=== PATIENT | male | born 1935 | race African-American/Black ===

== ENCOUNTER 2018-03-06 10:24 | Inpatient (IN) | payer MEDICARE, MEDICAID ==
--- NOTE | 2018-03-06 11:13 | ED Physician Chart ---
ED Chief Complaint/HPI - Patient Information Date Seen:: 03/06/18 Time Seen:: 11:07 Chief Complaint:: AGITATION, INCREASED ISOLATION, VERBALIZED DEPRESSION History of Present Illness:: THE PATIENT HAS VERBALIZED THAT HE IS FEELING DEPRESSED BUT HE DENIES SAYING THAT HE WAS DEPRESSED AND HAS NO RECOLLECTION OF IT. HE DENIES DEPRESSION AT THIS STAGE. PATIENT IS ALSO BEING TREATED FOR UTI WITH IV LEVAQUIN. HE HAS A WALDEN CATHETER AND DENIES ANY BURNING WITH URINATION. NO URINARY FREQUENCY. PATIENT DENIES HAVING ANY PAIN WHATSOEVER AT THIS TIME. HE DOES HOWEVER, TAKE PAIN PILLS FREQUENTLY SINCE HE HAD PROSTATE SURGERY 2-3 YEARS AGO. Allergies:: Allergies Allergy/AdvReac Type Severity Reaction Status Date / Time No Known Allergies Allergy Verified 03/06/18 10:47 Vitals:: Vital Signs - 8 hr 03/06/18 10:47 Temp 97.5 F HR 93 RR 18 BP 145/72 O2 Sat % 95 Historian:: Patient, EMS Review:: Nurse's Note Reviewed, EMS run form Reviewed, Transfer documents Reviewed, No other information ED Review of Systems - Review of Systems General/Constitutional: No fever, No chills, Weakness (THE PATIENT HAD A STROKE APPROXIMATELY 5 YEARS AGO THAT HIS LEFT HIM WEAK ON HIS RIGHT SIDE.), No diaphoresis Skin: No skin lesions, No rash, No bruising Head: No headache, No light-headedness (the patient is blind in his right eye. He's had cataract surgery on that eye also.) Neck: No neck pain, No swelling, No thyromegaly, Stiffness, No mass noted Cardio Vascular: No chest pain, No palpitations, No orthopnea, No edema, other ( IRREGULAR RHYTHM DUE TO A. FIB.) Pulmonary: No SOB, No cough, No sputum, Other (no hemoptysis.) GI: No nausea, No vomiting, No diarrhea, No melena, No hematochezia, Constipation, No hematemesis G/U: No dysuria, No frequency, No hematuria, Other (Walden cath in place.) Musculoskeletal: No bone or joint pain, No back pain, No muscle pain Endocrine: No polyuria, No polydipsia Psychiatric: No depression, No suicidal ideation, No auditory hallucination Hematopoietic: No bruising, No lymphadenopathy Allergic/Immuno: No urticaria, No angioedema Neurological: No syncope, No headache, No seizure, No dizziness ED Past Medical History - Past Medical History Past Medical History: HTN, CAD, Dyslipidemia, Other (no history of diabetes or seizures. Patient had a CVA 4-5 years ago. No pacemaker.) Family History: Heart disease, Other (mild dementia.) Social History: Non Smoker (infrequent alcohol use his last job was as a) Employment:: Occasional use of alcohol. Has never used illicit drugs. twice. No illicit drug use Family Medical History - Family Member Mother History Unknown: Yes ED Physical Exam - Physical Examination General/Constitutional: Awake, Well-developed, well-nourished, Alert, No distress, Non-toxic appearing Other Gen/Cons comments:: Patient has been nonambulatory for a period of approximately 5 years. 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 Skin: Nl inspection, No rash, No skin lesions, No ecchymosis, Well hydrated, No lymphadenopathy Other Skin comments:: Patient has old decubiti that have healed over in the buttocks region.. ENMT: External ears, nose nl, Nasal exam nl, Oropharynx nl Other ENMT comments:: Patient is missing multiple teeth and wears dentures. Neck: No stridor Other Neck comments:: Range of motion is limited in the neck due to the patient's muscle tone. Marked muscle tone with AP flexion. No marked nuchal rigidity ED Labs/Radiology/EKG Results - Lab Results Results: Single view AP chest x-ray.: Patient has cardiomegaly with no associated CHF. No areas of pulmonary consolidation or infiltrate. Impression: No acute cardiopulmonary findings. The EKG shows atrial fibrillation with a ventricular rate of 97. Raphine is normal. Patient has a prolonged QRS interval and right bundle branch block. Impression: Abnormal EKG. No ST segment elevation. Laboratory Results - last 24 hr 03/06/18 11:15 WBC 6.8 RBC 4.89 Hgb 12.6 Hct 38.3 L MCV 78.4 L MCH 25.9 L MCHC Differential 33.0 RDW 12.8 Plt Count 264 MPV 7.0 Neutrophils % 60.1 Lymphocytes % 23.3 Monocytes % 10.1 H Eosinophils % 5.8 H Basophils % 0.7 Patient's CBC is unremarkable and that there is no leukocytopenia, leukocytosis or anemia. Metabolic studies are still pending. ED Assessment - Assessment General Assessment: : CASE SUMMARY: THIS PATIENT WAS REFERRED TO [facility] FOR PSYCHIATRIC EVALUATION. HE IS 82 YEARS OLD AND QUALIFIES FOR THE PSYCHIATRIC GERIATRIC FACILITY. HE CURRENTLY DENIES THAT HE IS DEPRESSED BUT APPARENTLY HAD COMPLAINED OF THIS RECENTLY. HE IS CURRENTLY BEING TREATED WITH LEVAQUIN And FOR HER URINARY TRACT INFECTION. PATIENT HAS CHRONIC ATRIAL FIBRILLATION BUT HIS CARDIAC STATUS IS STABLE. THE CBC WAS UNREMARKABLE AND THERE WAS NO EVIDENCE FOR INFECTION. METABOLIC STUDIES. THE PATIENT HAS MILD HYPONATREMIA WHICH IS OF NO CLINICAL SIGNIFICANCE. THE REST OF HIS ELECTROLYTES ARE WITHIN NORMAL PARAMETERS. HE HAS MILD IMPAIRMENT OF RENAL FUNCTION WITH A BUN OF 24 AND A CREATININE OF 1.5 LIVER FUNCTION TESTS WERE WITHIN NORMAL PARAMETERS. ED Septic Shock - . Is Septic Shock (SBP<90, OR Lactate>4 mmol\L) present?: No - <6hrs of presentation: Vital Signs: Vital Signs - 8 hr 03/06/18 10:47 Temp 97.5 F HR 93 RR 18 BP 145/72 O2 Sat % 95 ED Reassessment (Disposition) - Reassessment Reassessment Condition:: Unchanged - Diagnosis Diagnosis:: DIAGNOSES: 1. DEPRESSION WITHOUT SUICIDAL IDEATION 2. ATRIAL FIBRILLATION WITH A CONTROLLED VENTRICULAR RATE 3. STATUS POST CVA WITH RESIDUAL SPASTICITY AND WEAKNESS ESPECIALLY INVOLVING THE RIGHT SIDE. 4. HYPERTENSION 5. HYPERLIPIDEMIA ED Discharge Plan - Patient Disposition Instructions: Psychosis
[2018-03-06 11:29] LABS: % BASOPHILS 0.7 % (0.0-2.0); % EOSINOPHILS 5.8 % (0.0-5.0); % LYMPHOCYTES 23.3 % (20.0-50.0); % MONOCYTES 10.1 % (2.0-10.0); % NEUTROPHILS 60.1 % (40.0-80.0); EOSINOPHILE ABSOLUTE 0.4 Th/cmm (0.1-0.4); HEMATOCRIT 38.3 % (41.0-60); HEMOGLOBIN 12.6 gm/dL (12-16); LYMPHOCYTE ABSOLUTE 1.6 Th/cmm (1.5-3.0); MEAN CELL VOLUME 78.4 fl (80-99); MEAN CORPUSCULAR HEMOGLOBIN 25.9 pg (27.0-31.0); MONOCYTE ABSOLUTE 0.7 Th/cmm (0.3-1.0); NEUTROPHILE ABSOLUTE 4.1 Th/cmm (1.8-8.0); PLATELET COUNT 264 Th/cmm (150-400); RED BLOOD COUNT 4.89 Mil/cmm (3.80-5.80); RED CELL DISTRIBUTION WIDTH 12.8 % (11.5-20.0); WHITE BLOOD COUNT 6.8 Th/cmm (4.8-10.8)
[2018-03-06 11:47] LABS: URINE MICROSCOPIC INDICATED? YES; URINE SOURCE CLEAN C
[2018-03-06 11:50] LABS: URINE BILIRUBIN NEGATIVE (NEGATIVE); URINE BLOOD NEGATIVE (NEGATIVE); URINE GLUCOSE (UA) NEGATIVE (NEGATIVE); URINE KETONE NEGATIVE (NEGATIVE); URINE LEUKOCYTE ESTERASE TRACE (NEGATIVE); URINE NITRATE POSITIVE (NEGATIVE); URINE PROTEIN NEGATIVE (NEGATIVE); URINE UROBILINOGEN 0.2 E.U./dL (0.2 - 1.0)
[2018-03-06 11:55] LABS: URINE CLARITY SLIGHTLY HAZY (CLEAR); URINE COLOR YELLOW
[2018-03-06 11:55] LABS: ALB/GLOB RATIO 1.1 (1.0-1.8); ALBUMIN 3.9 gm/dL (4.2-5.5); ALKALINE PHOSPHATASE 95 U/L (34-104); ANION GAP 10.5 (7.0-16.0); BILIRUBIN,TOTAL 0.4 mg/dL (0.3-1.0); BUN - UREA NITROGEN 24 mg/dL (7-25); CALCIUM SERUM 9.3 mg/dL (8.6-10.3); CARBON DIOXIDE 24.8 mEq/L (21.0-31.0); CHLORIDE 101 mEq/L (98-107); CHOLESTEROL 192 mg/dL (<200); CREATININE - SERUM 1.5 mg/dL (0.7-1.3); GLUCOSE 108 mg/dL (70-105); HDL -HIGH DENSITY LIPOPROTEIN 45 mg/dL (23-92); POTASSIUM SERUM 4.3 mEq/L (3.5-5.1); SGOT 13 U/L (13-39); SGPT/ALT 9 U/L (7-52); SODIUM SERUM 132 mEq/L (136-145); TOTAL PROTEIN,SERUM 7.4 gm/dL (6.0-8.3); TRIGLYCERIDES 64 mg/dL (<150)
[2018-03-06 11:56] LABS: URINE RBC 0-2 /hpf (0-5)
[2018-03-06 11:57] LABS: URINE BACTERIA MODERATE /hpf (NONE SEEN); URINE EPITHELIAL CELLS RARE /lpf (FEW); URINE TRIPLE PHOSPHATE CRYSTAL MANY /hpf (FEW)
[2018-03-06 20:08] VITALS: BP 113/63
[2018-03-06] MEDS ORDERED: Maalox 30 mL Cup PO PRN (22:40)
[2018-03-06] MEDS ORDERED: Magnesium Hydroxide (MOM) 30 mL UDC PO PRN (22:40)
[2018-03-07] MEDS ORDERED: Magnesium Hydroxide (MOM) 30 mL UDC PO PRN (02:45)
[2018-03-07] MEDS: Pantoprazole 40 mg EC Tab PO SCH ×2 (06:46→17:30)
[2018-03-07] MEDS ORDERED: Multivitamin Tab PO SCH (09:00)
--- NOTE | 2018-03-07 09:18 | Diagnostic Imaging Report ---
CHEST X-RAY: AP view INDICATION: Pneumonia COMPARISON: None FINDINGS: Left sided Port-A-Cath is seen with tip in SVC. There is elevation of the left hemidiaphragm. Increased left basal lung markings are noted. Chronic lung changes are noted. No focal consolidation or effusions. Cardiomegaly is noted. Degenerative changes of the spine are noted. IMPRESSION: Elevation of the left hemidiaphragm with increased left basal lung markings suggestive of atelectatic changes. Faint infiltrate is less likely. Cardiomegaly.
[2018-03-07] MEDS: Ferrous Sulfate 325 MG TAB PO SCH ×2 (10:33→17:53)
[2018-03-07] MEDS: Multivitamin w/ Minerals Tab PO SCH (10:33)
[2018-03-07] MEDS: Hydrocodone/APAP 5mg/325mg Tab PO PRN ×2 (10:45→18:00)
--- NOTE | 2018-03-07 15:12 | History & Physical ---
ADMIT DATE: 03/06/2018 PATIENT IDENTIFICATION: An 82-year-old male. REQUESTING PHYSICIAN: Dr. Santiago. PRESENTING COMPLAINTS: "I am depressed." HISTORY OF PRESENT ILLNESS: An 82-year-old -[place] male who was transferred from [facility] to [facility] for evaluation of social isolation and depression. The patient was worked up and subsequently admitted to Geropsych Unit. PAST MEDICAL HISTORY: Remarkable for: 1. Hypertension. 2. CVA. 3. Prostate cancer. 4. Neurogenic bladder requiring chronic indwelling Colmenares catheter. 5. Left eye blindness. 6. DJD. 7. History of hypoglycemia. MEDICATIONS: At the time of transfer, the patient is taking multiple medications, which includes [place], losartan, metoprolol, Dulcolax, vitamin C, and Protonix. ALLERGIES: The patient is not allergic to any medications. SOCIAL HISTORY: The patient resides in a senior living. According to him, the patient used to live in [place] and he is in [place] for last few years. The patient also tells me that he has not walked for last 2 years as well. FAMILY HISTORY: Remarkable for diabetes, hypertension, and coronary artery disease. REVIEW OF SYSTEMS: The patient currently denies any headache, blurred vision, double vision, dysphagia, odynophagia, runny nose, stuffy nose, fever, chills, cough, chest pain, shortness of breath, palpitation, dizziness, nausea, vomiting, diarrhea, dysuria, hematuria, hematochezia, or melena. No history of any seizure or syncopal episode. PHYSICAL EXAMINATION: GENERAL: The patient is alert, awake, oriented, lying in the bed without any acute distress. VITAL SIGNS: Temperature 98.6, pulse 64, respiratory rate 18, and blood pressure 126/80. SKIN: Warm to touch. Adequate skin turgor. No petechia, no purpura. HEENT: Normocephalic, atraumatic, legally blindness on the left eye noted. Decreased vision on the left eye also noted. Tongue was pink and coated. Multiple absent teeth noted. No oral lesion was noted. No sinus tenderness. NECK: Supple, no JVD, no hepatojugular reflex. No lymphadenopathy, thyromegaly, or carotid bruit. HEART: Both heart sounds are regular. No S3, no S4, no murmur. CHEST AND LUNGS: Equal in expansion, no wheezing, no crackles. ABDOMEN: Soft. No guarding, no rigidity. Bowel sounds are present. No palpable mass. EXTREMITIES: Bilateral foot drop noted. Peripheral pulses were +1. Lower extremity, no calf tenderness noted. NEUROLOGIC: Alert, awake, follows command. II through XII cranial nerves are intact. Power in upper extremities are 5-. Lower extremity power is 2/5. Absent reflexes on the knee and ankle noted. AVAILABLE DIAGNOSTIC DATA: Performed in the Emergency Room, chest x-ray: Elevation of the left hemidiaphragm noted. TSH of 2.37. Urinalysis report nitrate being positive. Hemoglobin 12.6 and platelet count of 264. BUN and creatinine is 24 and 1.5, albumin of 3.9. Cholesterols are normal. Sodium 132, potassium 4.3, chloride 101, glucose 108. Glycohemoglobin A1c 6.5. EKG normal sinus rhythm, no ST-T changes representing acute ischemia. CLINICAL IMPRESSION: 1. Acute exacerbation of psychotic disorder. 2. Hypertension. 3. Bilateral lower extremity weakness. 4. Neurogenic bladder. 5. History of prostate cancer. 6. Gastroesophageal reflux disease. 7. History of ischemic strokes. 8. Legally blindness. 9. Hyperlipidemia. 10. History of hypoglycemia. PLAN: 1. Psychotic evaluation and management deferred to psychiatrist. 2. Monitor blood pressure. 3. Antihypertensive medicine. 4. Antiplatelet therapy. 5. Keep indwelling Colmenares catheter. 6. Colmenares catheter management. 7. Proton pump inhibitor. 8. Statin. 9. Fall precautions. 10. General nursing care. 11. We will continue to follow this patient during the stay in the hospital. JOB# [id number]
--- NOTE | 2018-03-07 15:13 | Psychosocial Evaluation ---
DATE OF SERVICE: 03/06/2018 IDENTIFYING DATA: Staff was spoken to. Information obtained by directly interviewing the patient as well as reviewing the admission papers. JUSTIFICATION FOR HOSPITALIZATION: The patient is admitted on a voluntary basis in view of his acute depression. CHIEF COMPLAINT: "I am down." HISTORY OF PRESENT ILLNESS: This is the first psychiatric hospitalization to [facility] for this 82-year-old -[place] male, resident of [facility]. The patient is reported to have been feeling depressed and fatigue for the past 3-4 weeks and he states that he has not able to deal with it and hence requested hospitalization for stabilization. PAST PSYCHIATRIC HISTORY: Details are not known. MEDICAL HISTORY: Physical examination is requested to be done by Dr. Mahajan. SUBSTANCE ABUSE HISTORY: None. PHYSICAL OR SEXUAL ABUSE HISTORY: None. LEGAL PROBLEMS: None at this time. STRENGTH AND ASSETS: The patient is motivated. MENTAL STATUS EXAMINATION: The patient is an 82-year-old moderately obese, cooperative. Eye contact is fair. Mood is noted to be depressed. Affect is constricted. The patient's insight and judgment at this time are noted to be impaired. Impulse control is noted to be poor. The patient is not presenting with any suicidal plans, but patient is feeling frustrated. The patient has been having difficult time to cope with the stress. The patient is fully aware that he is in the hospital. The patient is alert and awake. The patient is motivated for treatment. DIAGNOSTIC IMPRESSION: AXIS I: Major depressive disorder, first episode and severe. AXIS II: None. AXIS III: As per Dr. Mahajan. IMMEDIATE TREATMENT PLAN: The patient is going to be observed on inpatient unit, provided with supportive psychotherapy. The patient is going to be started on the low dose of Lexapro. Once stabilized, the patient is going to be discharged to ____ outpatient basis. JOB# [id number]
[2018-03-08] MEDS: Hydrocodone/APAP 5mg/325mg Tab PO PRN ×2 (06:16→12:09)
[2018-03-08] MEDS: Pantoprazole 40 mg EC Tab PO SCH ×2 (06:41→17:36)
[2018-03-08] MEDS: Escitalopram Oxalate 5 mg Tab PO SCH (08:30)
[2018-03-08] MEDS: Multivitamin w/ Minerals Tab PO SCH (08:32)
[2018-03-08] MEDS: Ferrous Sulfate 325 MG TAB PO SCH ×2 (08:32→17:35)
[2018-03-08] MEDS ORDERED: Probiotic Screen MC PRN (10:23)
[2018-03-08] MEDS: Lactobacillus Rhamnosus GG 15 Billion CFU CAP.SPRINK PO SCH (11:30)
--- NOTE | 2018-03-08 22:55 | Progress Notes ---
DATE: IDENTIFICATION: An 82-year-old male. SUBJECTIVE: The patient seen and examined. The patient is lying in the bed. The patient complaining of the leg cramp on left lower extremity. The patient denies any chest pain, shortness of breath, palpitation, dizziness, nausea, vomiting. PHYSICAL EXAMINATION: VITAL SIGNS: See nurse's note. HEENT: Legally blindness in the left eye. Tongue more pink and coated. Multiple absent teeth noted. NECK: Supple, no JVD. HEART: Regular. CHEST AND LUNGS: Equal in expansion, no wheezing, no crackles. ABDOMEN: Soft. No guarding or rigidity. Bowel sounds present. No palpable mass. EXTREMITIES: Lower extremity weakness noted. Indwelling Colmenares catheter noted. CLINICAL IMPRESSION: 1. Hypertension. 2. Prostate cancer history. 3. Neurogenic bladder requiring indwelling Colmenares catheter. 4. Degenerative joint disease. 5. Gastroesophageal reflux disease. 6. Psychotic disorder exacerbation. 7. History of cerebrovascular accident. PLAN: 1. Psychotic evaluation deferred to psychiatrist. 2. Antihypertensive medicine. 3. Low sodium diet. 4. Colmenares catheter care. 5. Pepcid. 6. Antiplatelet therapy. 7. General nursing care. 8. Nutritional support. 9. Fall precautions. 10. We will continue to follow this patient during the stay in the hospital. JOB# [id number]
--- NOTE | 2018-03-09 00:08 | Progress Notes ---
DATE: 03/08/2018 PSYCHIATRIC PROGRESS NOTE SUBJECTIVE: Staff was spoken to. The patient is interviewed. Mood is noted to be irritable. Affect is constricted. Coping skills are noted to be very poor. The patient has been isolative and withdrawn. The patient is stating that he has been here to get some of the tests done and he needs to go back to the facility. The patient has no insight into his illness and has not been fully aware that he is in the hospital. ASSESSMENT: The patient is still depressed. PLAN: To continue the patient with supportive therapy. I encouraged the patient to verbalize the concerns rather than to act out. JOB# [id number]
[2018-03-09] MEDS: Hydrocodone/APAP 5mg/325mg Tab PO PRN ×3 (06:18→20:32)
[2018-03-09] MEDS: Pantoprazole 40 mg EC Tab PO SCH ×2 (06:33→17:15)
--- NOTE | 2018-03-09 07:55 | Consultation ---
DATE OF CONSULTATION: 03/08/2018 REFERRING PHYSICIAN: Dayna Santiago M.D. TYPE OF CONSULTATION: Psychology. HISTORY OF PRESENT ILLNESS: The patient is an 82-year-old -Irish male. The patient is a resident of [facility]. The following is by review of the record and by the patient's self report. The patient is reported to have been feeling depressed and fatigued for approximately 3-4 weeks. The staff at [facility] referred the patient here for treatment and stabilization. Upon interview, the patient presents as friendly and cooperative as well as answering clinical interview questions relevantly and coherently. The patient reports that he is not feeling as depressed as before and stated that he mostly has difficulty managing his pain which precipitates a depressed mood. PAST MEDICAL HISTORY: Please see history and physical by Dr. Mahajan. PAST PSYCHIATRIC HISTORY: Information is unavailable at the time of this clinical interview. SUBSTANCE ABUSE HISTORY: PSYCHOSOCIAL HISTORY: The patient reported not to disclose much of a psychosocial history. The patient states that he has had a good life. The patient did not state a specific occupation. The patient states he is a [employer]. The patient is a high school graduate with some college. The patient intimated that he may be a ; however, this was not verified. The patient wishes to return to his facility. The patient denied any history of physical or sexual abuse or any legal problems. MENTAL STATUS EXAMINATION: The patient appears to be his stated age. The patient's attitude is cooperative. Speech is spontaneous. Eye contact is good. Mood is dysphoric. Affect is mood congruent. Thought process shows to be linear and logical with a normal pattern of association and goal oriented. The patient denied any auditory or visual hallucinations or any delusions. The patient denied any suicidal ideation, plan, or intention. The patient states that he has been frustrated with controlling his pain. Concentration is fair. The patient's behavior on the unit has been compliant and directable. Impulse control is fair or adequate. The patient's memory seems to be intact for immediate, short term and custodial dimensions. Sensorium is alert and oriented x3. The patient did not participate in any interpretation of proverbs. Insight is fair. Judgment is fair. DIAGNOSTIC IMPRESSION: AXIS I: Major depressive disorder, first episode, moderate to severe. AXIS II: Deferred. AXIS III: Please see history and physical by Dr. Mahajan. TREATMENT PLAN: The patient has been seen by Dr. Santiago for psychiatric evaluation and for the management of the patient's psychotropic medications. The patient will be provided with supportive psychotherapy to include cognitive behavioral therapy and coping strategies for phase of life issues. According to the record, the patient was started on a low dose of Lexapro. The patient is goal oriented and motivated. We will continue supportive therapy throughout the patient's hospital stay. Thank you, Dr. Santiago, for this consult and the opportunity to participate with you in this patient's care. JOB# [id number] KYLEE
[2018-03-09] MEDS: Multivitamin w/ Minerals Tab PO SCH (08:44)
[2018-03-09] MEDS: Escitalopram Oxalate 5 mg Tab PO SCH (08:44)
[2018-03-09] MEDS: Lactobacillus Rhamnosus GG 15 Billion CFU CAP.SPRINK PO SCH (08:45)
[2018-03-09] MEDS: Ferrous Sulfate 325 MG TAB PO SCH ×2 (08:45→17:16)
--- NOTE | 2018-03-09 22:44 | Progress Notes ---
DATE: 03/09/2018 SUBJECTIVE: Staff was spoken to. The patient is interviewed. Mood is noted to be irritable. Affect is constricted. Coping skills are noted to be still poor. The patient is getting easily irritable and angry. The patient is isolated and the patient is stating that there is no reason for him to be on the medications and patient has been having difficult time to comply with the treatment. ASSESSMENT: The patient is still depressed. PLAN: To continue the patient with the supportive therapy and followup. [facility]# [id number]
--- NOTE | 2018-03-10 06:03 | Progress Notes ---
DATE: 03/09/2018 SUBJECTIVE: The patient seen and examined. The patient is lying in the bed. The patient denies any chest pain, shortness of breath, palpitation, dizziness, nausea, vomiting, headache. PHYSICAL EXAMINATION: VITAL SIGNS: Reviewed. HEENT: Legally blindness on the left eye. Tongue was pink and coated. No facial asymmetry. NECK: Supple. No JVD. No lymphadenopathy, thyromegaly. HEART: Regular. CHEST: Lung equal in expansion with no expiratory wheezing. ABDOMEN: Soft. No guarding. No rigidity. Bowel sounds are present. No palpable mass. EXTREMITIES: No edema. Peripheral pulses are +1. Bilateral foot drop noted. CLINICAL IMPRESSIONS: 1. Hypertension. 2. Prostate cancer by history. 3. Degenerative joint disease. 4. Gastroesophageal reflux disease. 5. Psychotic disorder exacerbation. 6. History of cerebrovascular accident. 7. High risk for fall. 8. Legally blindness from the left eye. 9. Neurogenic bladder. PLAN: 1. Psych medications. 2. Psych followup. 3. Antihypertensive medicine. 4. Aspirin. 5. Indwelling Colmenares catheter care. 6. Proton pump inhibitor. 7. Statin. 8. General nursing care. 9. Care plan reviewed and discussed with staff. JOB# [id number]
[2018-03-10] MEDS: Hydrocodone/APAP 5mg/325mg Tab PO PRN ×2 (06:09→15:05)
[2018-03-10] MEDS: Pantoprazole 40 mg EC Tab PO SCH ×2 (06:33→16:24)
[2018-03-10] MEDS: Multivitamin w/ Minerals Tab PO SCH (10:00)
[2018-03-10] MEDS: Escitalopram Oxalate 5 mg Tab PO SCH (10:00)
[2018-03-10] MEDS: Lactobacillus Rhamnosus GG 15 Billion CFU CAP.SPRINK PO SCH (10:00)
[2018-03-10] MEDS: Ferrous Sulfate 325 MG TAB PO SCH (10:00)
--- NOTE | 2018-03-10 22:06 | Progress Notes ---
DATE: 03/10/2018 SUBJECTIVE: Staff was spoken to. The patient is interviewed. Mood is noted to be irritable. Affect is constricted. Coping skills are noted to be still poor. Sleep and appetite also noted to very limited. The patient has been isolative and withdrawn, has been showing very little interest in participating in any of the groups. ASSESSMENT: The patient is still depressed. PLAN: To continue the patient with a low dose of Lexapro and follow. JOB# [id number]
[2018-03-11] MEDS: Hydrocodone/APAP 5mg/325mg Tab PO PRN ×3 (03:11→20:48)
--- NOTE | 2018-03-11 06:31 | Progress Notes ---
DATE: 03/10/2018 SUBJECTIVE: The patient seen and examined. The patient is lying in the bed. Discussed with nursing staff. There is no new event noted. OBJECTIVE: VITAL SIGNS: Temperature 98.1, pulse is 76, respiratory rate is 18, blood pressure 130/80. HEENT: No facial asymmetry. NECK: Supple, no JVD. HEART: Regular. CHEST: Lung equal in expansion. LUNGS: No wheezing, no crackles. ABDOMEN: Soft, no guarding, no rigidity. Bowel sounds are present. No palpable mass. EXTREMITIES: Bilateral foot drop noted with muscle wasting on the lower extremity. No calf tenderness noted. Bilateral foot drop noted. Neurogenic bladder noted. NEUROLOGY EXAM: Remarkable for lower extremity weakness. CLINICAL IMPRESSION: 1. Urinary tract infection caused by Proteus mirabilis, sensitivity to penicillin, currently on amoxicillin. 2. Neurogenic bladder. 3. Psychotic disorder exacerbation. 4. History of cerebrovascular accident. 5. Lower extremity weakness. 6. High risk for fall. 7. Neurogenic bladder. PLAN: The patient is to be continued on p.o. amoxicillin along with the monitor blood pressure. Continue antihypertensive medications along with symptoms management and Protonix for GERD. Discontinue iron therapy considering patient has no longer anemia. Fall precautions will be continued. General nursing care will be continued and nutritional support will be provided. Care plan has been reviewed and discussed with staff. JOB# [id number]
[2018-03-11] MEDS: Pantoprazole 40 mg EC Tab PO SCH ×2 (06:43→17:25)
[2018-03-11] MEDS: Multivitamin w/ Minerals Tab PO SCH (08:32)
[2018-03-11] MEDS: Lactobacillus Rhamnosus GG 15 Billion CFU CAP.SPRINK PO SCH (08:32)
[2018-03-11] MEDS: Escitalopram Oxalate 5 mg Tab PO SCH (08:32)
--- NOTE | 2018-03-12 03:14 | Progress Notes ---
DATE: 03/11/2018 PSYCHIATRIC PROGRESS NOTE SUBJECTIVE: Staff was spoken to. The patient is interviewed. Mood is noted to be irritable. Affect is constricted. Insight and judgment at this time are noted to be still impaired. Impulse control is noted to be limited. The patient has been getting angry and frustrated that he needs to be out of here. No side effects to the medications are noted. The patient is only on 5 mg of the Lexapro and has been able to tolerate the medications. No side effects to the medications are noted. ASSESSMENT: The patient is still depressed. PLAN: To increase the dose on the Lexapro to 10 mg and follow the patient with the supportive therapy. JOB# [id number]
[2018-03-12] MEDS: Pantoprazole 40 mg EC Tab PO SCH ×2 (06:34→16:30)
[2018-03-12] MEDS: Lactobacillus Rhamnosus GG 15 Billion CFU CAP.SPRINK PO SCH (08:28)
[2018-03-12] MEDS: Multivitamin w/ Minerals Tab PO SCH (08:29)
[2018-03-12] MEDS ORDERED: Escitalopram Oxalate 5 mg Tab PO SCH (09:00)
[2018-03-12] MEDS: Hydrocodone/APAP 5mg/325mg Tab PO PRN ×2 (13:41→21:28)
--- NOTE | 2018-03-13 02:10 | Progress Notes ---
DATE: 03/12/2018 PSYCHIATRIC PROGRESS NOTE SUBJECTIVE: Staff was spoken to. The patient is interviewed. Mood is noted to be anxious. Affect is appropriate. Coping skills are noted to be improving. Sleep and appetite are noted to be fair. No side effects to the medications are noted. The patient has been currently on the Lexapro and has been able to tolerate the medications. No side effects to the medications are noted. ASSESSMENT: The patient's mood is stabilizing. PLAN: To continue the patient with supportive therapy. I encouraged the patient to place the concerns rather than to act out. JOB# [id number]
--- NOTE | 2018-03-13 03:26 | Progress Notes ---
DATE: 03/12/2018 IDENTIFICATION: An 82-year-old male. SUBJECTIVE: The patient seen and examined. The patient is lying in the bed. Discussed with nursing staff, no new event. The patient remained hemodynamically stable. OBJECTIVE: VITAL SIGNS: Temperature 97, pulse is 80, respiratory rate is 18, blood pressure 143/72. HEENT: No facial asymmetry. NECK: Supple, no JVD. HEART: Regular. CHEST: Lung equal in expansion. LUNGS: No wheezing, no crackles. ABDOMEN: Soft. No guarding, no rigidity. Bowel sounds are present. No palpable mass. EXTREMITIES: Bilateral lower extremity weakness noted, but it was a +1 bilateral foot drop noted. No calf tenderness. Indwelling Colmenares catheter also noted. CLINICAL IMPRESSION: 1. Proteus mirabilis urinary tract infection. 2. Neurogenic bladder. 3. Lower extremity weakness. 4. Psychiatric disorder exacerbation. 5. High risk for fall. PLAN: 1. Antibiotic. 2. Bladder, Colmenares catheter care. 3. Nutritional support. 4. Fall precautions. 5. Psychotic evaluation and management deferred to psychiatrist. 6. General nursing care. 7. Continue other medicine as prescribed. 8. Symptoms management. 9. We will continue to follow this patient during the stay in the hospital. JOB# [id number]
[2018-03-13] MEDS: Pantoprazole 40 mg EC Tab PO SCH (06:50)
[2018-03-13] MEDS: Multivitamin w/ Minerals Tab PO SCH (08:56)
[2018-03-13] MEDS: Lactobacillus Rhamnosus GG 15 Billion CFU CAP.SPRINK PO SCH (08:58)
[2018-03-13] MEDS: Hydrocodone/APAP 5mg/325mg Tab PO PRN (08:58)
--- NOTE | 2018-03-13 11:51 | Internal Medicine Prog Note ---
Internal Medicine Subjective - Subjective Service Date: 03/13/18 Patient seen and examined:: with staff, chart reviewed Patient is:: awake, verbal, interactive, in bed Internal Medicine Objective - Results Result Diagrams: 03/06/18 11:15 03/06/18 11:15 Recent Labs: Laboratory Last Values WBC 6.8 Th/cmm (4.8-10.8) 03/06/18 11:15 RBC 4.89 Mil/cmm (3.80-5.80) 03/06/18 11:15 Hgb 12.6 gm/dL (12-16) 03/06/18 11:15 Hct 38.3 % (41.0-60) L 03/06/18 11:15 MCV 78.4 fl (80-99) L 03/06/18 11:15 MCH 25.9 pg (27.0-31.0) L 03/06/18 11:15 MCHC Differential 33.0 pg (28.0-36.0) 03/06/18 11:15 RDW 12.8 % (11.5-20.0) 03/06/18 11:15 Plt Count 264 Th/cmm (150-400) 03/06/18 11:15 MPV 7.0 fl 03/06/18 11:15 Neutrophils % 60.1 % (40.0-80.0) 03/06/18 11:15 Lymphocytes % 23.3 % (20.0-50.0) 03/06/18 11:15 Monocytes % 10.1 % (2.0-10.0) H 03/06/18 11:15 Eosinophils % 5.8 % (0.0-5.0) H 03/06/18 11:15 Basophils % 0.7 % (0.0-2.0) 03/06/18 11:15 Sodium 132 mEq/L (136-145) L 03/06/18 11:15 Potassium 4.3 mEq/L (3.5-5.1) 03/06/18 11:15 Chloride 101 mEq/L (98-107) 03/06/18 11:15 Carbon Dioxide 24.8 mEq/L (21.0-31.0) 03/06/18 11:15 Anion Gap 10.5 (7.0-16.0) 03/06/18 11:15 BUN 24 mg/dL (7-25) 03/06/18 11:15 Creatinine 1.5 mg/dL (0.7-1.3) H 03/06/18 11:15 Est GFR ( Amer) TNP 03/06/18 11:15 Est GFR (Non-Af Amer) TNP 03/06/18 11:15 BUN/Creatinine Ratio 16.0 03/06/18 11:15 Glucose 108 mg/dL (70-105) H 03/06/18 11:15 Hemoglobin A1c % 6.0 % (4.0-6.0) 03/06/18 11:15 Calcium 9.3 mg/dL (8.6-10.3) 03/06/18 11:15 Total Bilirubin 0.4 mg/dL (0.3-1.0) 03/06/18 11:15 AST 13 U/L (13-39) 03/06/18 11:15 ALT 9 U/L (7-52) 03/06/18 11:15 Alkaline Phosphatase 95 U/L (34-104) 03/06/18 11:15 Total Protein 7.4 gm/dL (6.0-8.3) 03/06/18 11:15 Albumin 3.9 gm/dL (4.2-5.5) L 03/06/18 11:15 Globulin 3.5 gm/dL 03/06/18 11:15 Albumin/Globulin Ratio 1.1 (1.0-1.8) 03/06/18 11:15 Triglycerides 64 mg/dL (<150) 03/06/18 11:15 Cholesterol 192 mg/dL (<200) 03/06/18 11:15 LDL Cholesterol Direct 130 mg/dL (75-193) 03/06/18 11:15 HDL Cholesterol 45 mg/dL (23-92) 03/06/18 11:15 TSH 2.37 uIU/ml (0.34-5.60) 03/06/18 11:15 Urine Source CLEAN C 03/06/18 11:40 Urine Color YELLOW 03/06/18 11:40 Urine Clarity SLIGHTLY HAZY (CLEAR) 03/06/18 11:40 Urine pH 8.0 (4.6 - 8.0) 03/06/18 11:40 Ur Specific [place] 1.010 (1.005-1.030) 03/06/18 11:40 Urine Protein NEGATIVE mg/dL (NEGATIVE) 03/06/18 11:40 Urine Glucose (UA) NEGATIVE mg/dL (NEGATIVE) 03/06/18 11:40 Urine Ketones NEGATIVE mg/dL (NEGATIVE) 03/06/18 11:40 Urine Blood NEGATIVE (NEGATIVE) 03/06/18 11:40 Urine Nitrate POSITIVE (NEGATIVE) H 03/06/18 11:40 Urine Bilirubin NEGATIVE (NEGATIVE) 03/06/18 11:40 Urine Urobilinogen 0.2 E.U./dL (0.2 - 1.0) 03/06/18 11:40 Ur Leukocyte Esterase TRACE (NEGATIVE) H 03/06/18 11:40 Urine RBC 0-2 /hpf (0-5) H 03/06/18 11:40 Urine WBC 6-10 /hpf (0-5) 03/06/18 11:40 Ur Epithelial Cells RARE /lpf (FEW) 03/06/18 11:40 Triple Phos Crystals MANY /hpf (FEW) 03/06/18 11:40 Urine Bacteria MODERATE /hpf (NONE SEEN) H 03/06/18 11:40 RPR NONREACTIVE (NONREACTIVE) 03/06/18 11:15 - Physical Exam Vitals and I&O: Vital Signs Temp 98.1 F 03/13/18 07:09 Pulse 87 03/13/18 08:57 Resp 20 03/13/18 07:09 BP 121/74 03/13/18 08:57 Pulse Ox 100 03/13/18 07:09 Intake & Output 03/12/18 03/13/18 03/13/18 18:59 06:59 18:59 Intake Total 900 420 340 Output Total 800 400 600 Balance 100 20 -260 Intake: Oral 900 420 340 Output: Urine 800 400 600 Active Medications: Current Medications Acetaminophen (Tylenol) 650 mg PO Q4HR PRN PRN Reason: Mild Pain / Temp above 100 Stop: 05/05/18 22:39 Acetaminophen/Hydrocodone Bitart ([place] 5mg/325mg) 1 tab PO Q6H PRN PRN Reason: Pain (Moderate) Stop: 05/06/18 02:36 Last Admin: 03/13/18 08:58 Dose: 1 tab Al Hydrox/Mg Hydrox/Simethicone (Maalox) 30 ml PO Q4HR PRN PRN Reason: GI DISTRESS Stop: 05/05/18 22:39 Amoxicillin (Amoxil) 500 mg PO TID [facility] Stop: 05/07/18 20:59 Last Admin: 03/13/18 08:56 Dose: 500 mg Ascorbic Acid (Vitamin C) 500 mg PO DAILY [facility] Stop: 05/06/18 08:59 Last Admin: 03/13/18 08:57 Dose: 500 mg Bisacodyl (Dulcolax 10 Mg Supp) 10 mg RC DAILY PRN PRN Reason: Constipation Stop: 05/06/18 02:36 Escitalopram Oxalate (Lexapro) 10 mg PO DAILY [facility] Stop: 05/12/18 08:59 Last Admin: 03/13/18 08:58 Dose: 10 mg Lactobacillus Rhamnosus (Culturelle 15b) 1 each PO DAILY [facility] Stop: 05/07/18 10:59 Last Admin: 03/13/18 08:58 Dose: 1 each Lorazepam (Ativan) 0.5 mg PO Q4HR PRN; Protocol PRN Reason: Anxiety/agitation Stop: 04/05/18 22:39 Losartan Potassium (Cozaar) 50 mg PO BID [facility] Stop: 05/06/18 08:59 Last Admin: 03/13/18 08:56 Dose: 50 mg Magnesium Hydroxide (Milk Of Magnesia) 30 ml PO DAILY PRN PRN Reason: Bowel Maintenance Stop: 05/06/18 02:44 Metoprolol Tartrate (Lopressor) 25 mg PO BID [facility] Stop: 05/06/18 08:59 Last Admin: 03/13/18 08:57 Dose: 25 mg Miscellaneous (Probiotic Screen) 1 ea MC PRN PRN PRN Reason: PROTOCOL Stop: 05/07/18 10:22 Pantoprazole Sodium (Protonix) 40 mg PO BIDAC [facility] Stop: 05/06/18 07:29 Last Admin: 03/13/18 06:50 Dose: 40 mg Zolpidem Tartrate (Ambien) 5 mg PO HS PRN PRN Reason: Insomnia Stop: 05/05/18 22:39 Last Admin: 03/12/18 01:28 Dose: 5 mg General: alert, NAD HEENT: NC/AT, PERRLA, EOMI, throat clear, poor dentition Neck: Supple, No JVD, No thyromegaly Lungs: CTAB Cardiovascular: RRR, Normal S1, Normal S2 Abdomen: soft, non-tender, non-distended Extremities: contracture, deformity, atrophy Neurological: other (LE weakness+) Internal Medicine Assmt/Plan - Assessment Assessment: Psych disorder. LE weakness. Neurogenic bladdder. Proteus mirabilis UTI. DJD Fall risk. Hypertension. GERD. - Plan Plan: PO antibiotics. Colmenares cath care. Psych meds. Psych Follow up. General nursing care. Symptoms control. Medication management. Fall precautions. Continue current care. Discussed with staff. Nutritional Asmnt/Malnutr-PDOC - Dietary Evaluation Malnutrition Findings (Please click <Entered> for more info): Nutritional Asmnt/Malnutrition Start: 03/09/18 14: 17 Text: Status: Complete Freq: Protocol: Document 03/09/18 14:17 RODRI (Rec: 03/09/18 14:22 YOBANI [id number]) Nutritional Asmnt/Malnutrition Patient General Information Nutritional Screening High Risk Consult Diagnosis psychosis Pertinent Medical Hx/Surgical Hx HTN, CVA, prostate cancer, meurogenic bladder, left eye blindness, DJD, hypoglycemia Subjective Information Consult received for kirsten hong 13, sacral scar tissue. Pt seen sleeping in bed at time of visit. Per EMR, PO intake 25-100%. Current Diet Order/ [facility], Pertinent Medications vit C, iron, culturelle, protonix Pertinent Labs 6/2 na 132, Cr 1.5, glucose 108, A1c 6.0 Nutritional Hx/Data Height 1.75 m Height (Calculated Centimeters) 175.3 Current Weight (lbs) 90.718 kg Weight (Calculated Kilograms) 90.7 Weight (Calculated Grams) 14982.5 [place] Body Weight 160 Body Mass Index (BMI) 29.5 Weight Status Overweight GI Symptoms GI Symptoms None Last BM 6/4 Difficult in: None Skin Integrity/Comment: onychomycosis-toe nail fungus- both feet. Current %PO Good (75-100%) Estimated Nutritional Goals BEE in Kcals: Adj wt of IBW Calories/Kcals/Kg 25-30 Kcals Calculated 4033-7122 Protein: Adj wt of IBW Protein g/k Protein Calculated 77 Fluid: ml 1925-2310ml (1ml/kcal) Nutritional Problem No current Nutrition Prob Problem N/A Malnutrition Alert Is there a minimum of two criteria No selected? Query Text:Check all the applicable criteria. A minimum of two criteria are recommended for diagnosis of either severe or non-severe malnutrition. Malnutrition Related to Morbid Obesity Malnutrition related to morbid obesity No Intervention/Recommendation Comments 1. Continue with nech soft chopped RAJI cardiac diet as ordered. 2. Monitor PO intake, wt, labs and skin integrity 3. F/U as low risk in 7 days, 03/16 Expected Outcomes/Goals Expected Outcomes/Goals 1. PO intake to meet at least 75% of nutritional needs. 2. Wt stability, skin to remain intact, labs to approach WNL.
--- NOTE | 2018-03-13 13:11 | Progress Notes ---
DATE: 03/13/2018 PSYCHIATRIC PROGRESS NOTE SUBJECTIVE: Staff was spoken to. The patient is interviewed. Mood is noted to be anxious. The patient's coping skills are noted to be improving. The patient is stating that he has been feeling okay with the Lexapro. No side effects to medications are noted. The patient has been able to verbalize the concerns rather than to act out. ASSESSMENT: The patient is stabilizing. PLAN: To discharge the patient today for followup on outpatient basis. [facility]# [id number]
== END 2018-03-13 11:30 | DRG 885 ==
LOC: ER 10:24 → GERO 19:10
PROVIDERS: ADMIT Psychiatry & Neurology Psychiatry; ATTEND Psychiatry & Neurology Psychiatry
DX: F32.2 Major depressive disorder, single episode, severe without psychotic features (principal); N39.0 Urinary tract infection, site not specified; E87.1 Hypo-osmolality and hyponatremia; I69.351 Hemiplegia and hemiparesis following cerebral infarction affecting right dominant side; F23 Brief psychotic disorder; I10 Essential (primary) hypertension; N31.9 Neuromuscular dysfunction of bladder, unspecified; M19.90 Unspecified osteoarthritis, unspecified site; I25.10 Atherosclerotic heart disease of native coronary artery without angina pectoris; E78.5 Hyperlipidemia, unspecified; I48.2 Chronic atrial fibrillation; C61 Malignant neoplasm of prostate; K21.9 Gastro-esophageal reflux disease without esophagitis; H54.8 Legal blindness, as defined in USA; B96.4 Proteus (mirabilis) (morganii) as the cause of diseases classified elsewhere; Z91.81 History of falling
CPT/HCPCS: 36415-UA; 71045-TC; 80053-TC; 80061-TC; 81001-TC; 83036-90; 84443-TC; 85025-TC; 86592-TC; 87086-90; 93005; Z7610

== ENCOUNTER 2019-11-11 18:58 | Inpatient (IN) | payer MEDICARE, OTHER ==
[2019-11-11] MEDS ORDERED: Maalox 30 mL Cup PO PRN (23:25)
[2019-11-11] MEDS ORDERED: Magnesium Hydroxide (MOM) 30 mL UDC PO PRN (23:25)
[2019-11-11 23:31] VITALS: BP 140/67
[2019-11-12] MEDS: Multivitamin Tab PO SCH (08:49)
[2019-11-12] MEDS ORDERED: Maalox 30 mL Cup PO PRN (09:49)
[2019-11-12] MEDS ORDERED: Magnesium Hydroxide (MOM) 30 mL UDC PO PRN (09:50)
--- NOTE | 2019-11-12 12:13 | History & Physical ---
ADMIT DATE: 11/11/2019 CHIEF COMPLAINT: ____. The patient admitted to inpatient unit. HISTORY OF PRESENT ILLNESS: This is an 84-year-old male with history of BPH, hypercholesterolemia, history of prostatic cancer, paroxysmal atrial fibrillation, stroke, paraplegia, left eye blindness, admitted from ____. The patient was cleared medically from [place]. The patient was diagnosed with UTI and currently on p.o. antibiotic. PAST MEDICAL HISTORY: As mentioned in history of present illness. PAST SURGICAL HISTORY: Unable to obtain from the patient with previous prostate surgery. The patient is unable to let me know at this time. ALLERGIES: No known drug allergies. MEDICATIONS: The patient is on Lexapro, Tylenol, vitamin C, [place], lactobacillus, losartan, magnesium, metoprolol, pantoprazole, ____. SOCIAL HISTORY: The patient is a custodial patient requiring 24-hour total care. REVIEW OF SYSTEMS: This is limited secondary to pain, current mental state. We will try to obtain a more detailed review of systems already by talking to family members, through the daughter, Mitesh Castellanos at [phone], Delia Ragland is a granddaughter [phone]. We will also try to get more information from nursing staff at [phone] as well as from Dr. [place] ____. PHYSICAL EXAMINATION: VITAL SIGNS: Blood pressure 141/84, respirations 20, pulse 60, temperature 98.8. GENERAL: Elderly male, appears chronically ill. NECK: Supple. No mass. LUNGS: Equal breath sounds with a few rhonchi. HEART: Regular rate and rhythm with systolic ejection murmur. ABDOMEN: Soft, globular. EXTREMITIES: Positive excoriation reveals limited as per ____. NEUROLOGIC: Cranial nerve 1, this was offered, but patient is refused. Cranial nerve 2, this was offered, but patient is refused. Cranial nerve 3, this was offered, but patient is refused. Cranial nerve 4, this was offered, but patient is refused. Cranial nerve 5, this was offered, but patient is refused. Cranial nerve 6, this was offered, but patient is refused. Cranial nerve 7, this was offered, but patient is refused. Cranial nerve 8, this was offered, but patient is refused. Cranial nerve 9, this was offered, but patient is refused. Cranial nerve 10, this was offered, but patient is refused. Cranial nerve 11, this was offered, but patient is refused. Cranial nerve 12, this was offered, but patient is refused. Motor and sensory were unable to assess the patient's contracted. Gait not seen. LABORATORY DATA: WBC 6, hemoglobin 10, platelets 213. UA, 2+ leukocyte, nitrite and bacteria, glucose 141. BUN and creatinine 35 and 1.5. ASSESSMENT AND PLAN: Urinary tract infection, hypertension, history of stroke with paraplegia, decubitus ulcer, ____ paroxysmal atrial fibrillation, dementia, BPH, hypercholesterolemia, history of prostate cancer, DJD, ____ neurogenic bladder, renal insufficiency, anemia. We will continue the patient on p.o. antibiotic. Continue with adequate nutritional support. We will reconcile the patient's medication. Continue beta marina and proton pump inhibitor. We will continue to follow the patient closely. Continue fall precaution. JOB# [id number]
--- NOTE | 2019-11-12 15:37 | Psychiatric Evaluation ---
DATE OF SERVICE: 11/11/2019 IDENTIFYING DATA: The patient is an 84-year-old -[place] male, [facility] Information obtained by directly interviewing the patient as well as reviewing the admission papers. JUSTIFICATION OF HOSPITALIZATION: The patient is admitted on a voluntary basis acute depression. CHIEF COMPLAINT: "I am okay." HISTORY OF PRESENT ILLNESS: This is the second psychiatric hospitalization for this patient who was hospitalized under my care in 03/2018. The patient has been a resident of the [facility] and lately has been having difficult time to deal with the multiple medical problems and hence the patient has been admitted over here for stabilization. The patient's sleep is noted to be poor. Appetite is also noted to be very poor. The patient who has been frustrated. PAST PSYCHIATRIC HISTORY: Please refer to the above. MEDICAL HISTORY: Physical examination is requested to be done by Dr. Sutton. SUBSTANCE ABUSE HISTORY: None. PHYSICAL ABUSE HISTORY: None. SOCIAL HISTORY: The patient is retired, used to be working as a . The patient is stating that he does not have much of any contact with his family. STRENGTH AND ASSETS: The patient is motivated. MENTAL STATUS EXAMINATION: The patient is an 84-year-old, looking his stated age, superficially cooperative. Eye contact is poor. Mood is noted to be depressed. Affect is constricted. The patient at this time isolative and withdrawn. Insight and judgment at this time are noted to be still impaired. Impulse control is noted to be limited. Coping skills are noted to be limited. The patient has been having difficult time to cope with the stress. The patient feels frustrated at this time. The patient is not suicidal. The patient denies any auditory hallucinations or delusions are noted. ASSESSMENT: The patient is alert and fully aware that he is in the hospital. DIAGNOSTIC IMPRESSION: AXIS I: Major depressive disorder, recurrent and moderate. AXIS II: None. AXIS III: As per Dr. Sutton. IMMEDIATE TREATMENT PLAN: The patient is going to be observed on inpatient unit, provided with supportive psychotherapy. The patient is going to be closely monitored. Once stabilized, the patient is going to be [facility] to be followed up on an outpatient basis. In view of the depression, the patient is going to be started on low dose of Lexapro. JOB# [id number]
[2019-11-12] MEDS: Pantoprazole 40 mg EC Tab PO SCH (16:32)
[2019-11-13] MEDS: Pantoprazole 40 mg EC Tab PO SCH ×2 (06:33→16:32)
[2019-11-13] MEDS: Escitalopram Oxalate 5 mg Tab PO SCH (08:46)
[2019-11-13] MEDS: Lactobacillus Rhamnosus GG 15 Billion CFU CAP.SPRINK PO SCH (08:46)
[2019-11-13] MEDS: Multivitamin w/ Minerals Tab PO SCH (08:47)
[2019-11-13] MEDS: Multivitamin Tab PO SCH (08:48)
[2019-11-13] MEDS ORDERED: ZINC 220 MG PO SCH (09:00)
--- NOTE | 2019-11-13 10:52 | Progress Notes ---
DATE: 11/13/2019 PSYCHIATRIC PROGRESS NOTE SUBJECTIVE: Staff was spoken to. The patient is interviewed. Mood is noted to be anxious and depressed. The patient is isolative and withdrawn. Coping skills are noted to be very poor. Insight and judgment also noted to be limited. The patient has been having difficult time with the sleep and appetite is noted to be fair. ASSESSMENT: The patient is still depressed. PLAN: To continue the patient with the supportive therapy and followup. [facility]# [id number]
--- NOTE | 2019-11-13 19:26 | Internal Medicine Prog Note ---
Internal Medicine Subjective - Subjective Patient seen and examined:: with staff, chart reviewed Patient is:: verbal, interactive, confused Per staff patient has:: no adverse event, no episodes of fall, confused, tolerating meds Internal Medicine Objective - Physical Exam Vitals and I&O: Vital Signs Temp 98 F 11/13/19 14:04 Pulse 59 11/13/19 16:34 Resp 19 11/13/19 14:04 BP 125/59 11/13/19 16:34 Pulse Ox 99 11/13/19 14:04 Intake & Output 11/13/19 11/13/19 11/14/19 06:59 18:59 06:59 Intake Total 240 Balance 240 Intake: Oral 240 Other: # Voids 1 3 # Bowel Movements 2 Active Medications: Current Medications Acetaminophen (Tylenol) 650 mg PO Q4H PRN PRN Reason: Pain (Mild 1-3) Stop: 01/10/20 23:24 Acetaminophen (Tylenol) 650 mg PO Q4HR PRN PRN Reason: Temperature above 101 Stop: 01/11/20 09:48 Acetaminophen/Hydrocodone Bitart ([place] 5mg/325mg) 1 tab PO Q6H PRN PRN Reason: Pain (Moderate 4-6) Stop: 01/11/20 09:49 Al Hydrox/Mg Hydrox/Simethicone (Maalox) 30 ml PO Q4HR PRN PRN Reason: GI DISTRESS Stop: 01/11/20 09:48 Ascorbic Acid (Vitamin C) 500 mg PO DAILY [facility] Stop: 01/12/20 08:59 Last Admin: 11/13/19 08:49 Dose: 500 mg Bisacodyl (Dulcolax 10 Mg Supp) 10 mg RC DAILY PRN PRN Reason: Constipation Stop: 01/11/20 09:48 Ciprofloxacin (Cipro) 500 mg PO BID [facility] Stop: 01/11/20 16:59 Last Admin: 11/13/19 16:31 Dose: 500 mg Escitalopram Oxalate (Lexapro) 5 mg PO DAILY [facility]; Protocol Stop: 01/12/20 08:59 Last Admin: 11/13/19 08:46 Dose: 5 mg Lactobacillus Rhamnosus (Culturelle 15b) 1 each PO DAILY [facility] Stop: 01/12/20 08:59 Last Admin: 11/13/19 08:46 Dose: 1 each Lorazepam (Ativan) 0.5 mg PO Q4HR PRN; Protocol PRN Reason: Anxiety Stop: 12/11/19 23:24 Losartan Potassium (Cozaar) 50 mg PO BID [facility] Stop: 01/11/20 16:59 Last Admin: 11/13/19 16:33 Dose: Not Given Magnesium Hydroxide (Milk Of Magnesia) 30 ml PO DAILY PRN PRN Reason: Bowel Maintenance Stop: 01/11/20 09:49 Metoprolol Tartrate (Lopressor) 25 mg PO BID [facility] Stop: 01/11/20 16:59 Last Admin: 11/13/19 16:34 Dose: Not Given Mupirocin (Bactroban Oint) 1 appl TP BID [facility] Stop: 01/12/20 16:59 Last Admin: 11/13/19 16:34 Dose: 1 appl Pantoprazole Sodium (Protonix) 40 mg PO BIDAC [facility] Stop: 01/11/20 16:29 Last Admin: 11/13/19 16:32 Dose: 40 mg Zinc Sulfate (Zinc Sulfate) 220 mg PO DAILY [facility] Stop: 01/12/20 08:59 Last Admin: 11/13/19 08:48 Dose: 220 mg Zolpidem Tartrate (Ambien) 5 mg PO HS PRN PRN Reason: Insomnia Stop: 01/11/20 09:49 General: demented HEENT: NC/AT, PERRLA Neck: Supple, No JVD Lungs: CTAB Cardiovascular: RRR, Normal S1, Normal S2, with murmur Abdomen: soft, non-tender, globular, positive bowel sound Extremities: excoriation Neurological: no change Internal Medicine Assmt/Plan - Assessment Assessment: ASSESSMENT AND PLAN: Urinary tract infection, hypertension, history of stroke with paraplegia, decubitus ulcer, paroxysmal atrial fibrillation, dementia, BPH, hypercholesterolemia, history of prostate cancer, DJD, __h/o__ neurogenic bladder, renal insufficiency, anemia. - Plan Plan: PLAN: We will continue the patient on p.o. antibiotic. Continue with adequate nutritional support. We will reconcile the patient's medication. Continue beta marina and proton pump inhibitor. We will continue to follow the patient closely. Continue fall precaution.
[2019-11-14] MEDS: Pantoprazole 40 mg EC Tab PO SCH ×2 (06:37→16:47)
[2019-11-14] MEDS: Lactobacillus Rhamnosus GG 15 Billion CFU CAP.SPRINK PO SCH (08:06)
[2019-11-14] MEDS: Escitalopram Oxalate 5 mg Tab PO SCH (08:07)
[2019-11-14] MEDS: Multivitamin w/ Minerals Tab PO SCH (08:07)
[2019-11-14] MEDS: Hydrocodone/APAP 5mg/325mg Tab PO PRN ×2 (08:27→17:03)
--- NOTE | 2019-11-14 13:01 | Internal Medicine Prog Note ---
Internal Medicine Subjective - Subjective Patient seen and examined:: with staff, chart reviewed Patient is:: verbal, interactive, confused Per staff patient has:: no adverse event, no episodes of fall, confused, tolerating meds Internal Medicine Objective - Physical Exam Vitals and I&O: Vital Signs Temp 3 F 11/14/19 05:29 Pulse 94 11/14/19 08:28 Resp 20 11/14/19 05:29 BP 130/63 11/14/19 08:28 Pulse Ox 100 11/14/19 05:29 Intake & Output 11/13/19 11/14/19 11/14/19 18:59 06:59 18:59 Intake Total 240 Balance 240 Intake: Oral 240 Other: # Voids 3 3 # Bowel Movements 2 0 Active Medications: Current Medications Acetaminophen (Tylenol) 650 mg PO Q4H PRN PRN Reason: Pain (Mild 1-3) Stop: 01/10/20 23:24 Acetaminophen (Tylenol) 650 mg PO Q4HR PRN PRN Reason: Temperature above 101 Stop: 01/11/20 09:48 Acetaminophen/Hydrocodone Bitart ([place] 5mg/325mg) 1 tab PO Q6H PRN PRN Reason: Pain (Moderate 4-6) Stop: 01/11/20 09:49 Last Admin: 11/14/19 08:27 Dose: 1 tab Al Hydrox/Mg Hydrox/Simethicone (Maalox) 30 ml PO Q4HR PRN PRN Reason: GI DISTRESS Stop: 01/11/20 09:48 Ascorbic Acid (Vitamin C) 500 mg PO DAILY [facility] Stop: 01/12/20 08:59 Last Admin: 11/14/19 08:08 Dose: 500 mg Bisacodyl (Dulcolax 10 Mg Supp) 10 mg RC DAILY PRN PRN Reason: Constipation Stop: 01/11/20 09:48 Ciprofloxacin (Cipro) 500 mg PO BID [facility] Stop: 01/11/20 16:59 Last Admin: 11/14/19 08:06 Dose: 500 mg Escitalopram Oxalate (Lexapro) 5 mg PO DAILY [facility]; Protocol Stop: 01/12/20 08:59 Last Admin: 11/14/19 08:07 Dose: 5 mg Lactobacillus Rhamnosus (Culturelle 15b) 1 each PO DAILY [facility] Stop: 01/12/20 08:59 Last Admin: 11/14/19 08:06 Dose: 1 each Lorazepam (Ativan) 0.5 mg PO Q4HR PRN; Protocol PRN Reason: Anxiety Stop: 12/11/19 23:24 Losartan Potassium (Cozaar) 50 mg PO BID [facility] Stop: 01/11/20 16:59 Last Admin: 11/14/19 08:28 Dose: 50 mg Magnesium Hydroxide (Milk Of Magnesia) 30 ml PO DAILY PRN PRN Reason: Bowel Maintenance Stop: 01/11/20 09:49 Metoprolol Tartrate (Lopressor) 25 mg PO BID [facility] Stop: 01/11/20 16:59 Last Admin: 11/14/19 08:28 Dose: 25 mg Mupirocin (Bactroban Oint) 1 appl TP BID [facility] Stop: 01/12/20 16:59 Last Admin: 11/14/19 08:06 Dose: 1 appl Pantoprazole Sodium (Protonix) 40 mg PO BIDAC [facility] Stop: 01/11/20 16:29 Last Admin: 11/14/19 06:37 Dose: 40 mg Zinc Sulfate (Zinc Sulfate) 220 mg PO DAILY [facility] Stop: 01/12/20 08:59 Last Admin: 11/14/19 08:08 Dose: 220 mg Zolpidem Tartrate (Ambien) 5 mg PO HS PRN PRN Reason: Insomnia Stop: 01/11/20 09:49 General: demented HEENT: NC/AT, PERRLA Neck: Supple, No JVD Lungs: CTAB Cardiovascular: RRR, Normal S1, Normal S2, with murmur Abdomen: soft, non-tender, globular, positive bowel sound Extremities: excoriation Neurological: no change Internal Medicine Assmt/Plan - Assessment Assessment: ASSESSMENT AND PLAN: Urinary tract infection, hypertension, history of stroke with paraplegia, decubitus ulcer, paroxysmal atrial fibrillation, dementia, BPH, hypercholesterolemia, history of prostate cancer, DJD, __h/o__ neurogenic bladder, renal insufficiency, anemia. - Plan Plan: PLAN: We will continue the patient on p.o. antibiotic. Continue with adequate nutritional support. We will reconcile the patient's medication. Continue beta marina and proton pump inhibitor. We will continue to follow the patient closely. Continue fall precaution.
--- NOTE | 2019-11-15 00:09 | Progress Notes ---
DATE: 11/14/2019 PSYCHIATRIC PROGRESS NOTE SUBJECTIVE: Staff was spoken to. The patient is interviewed. Mood is noted to be irritable. Affect is constricted. The patient's coping skills are noted to be poor. The patient is isolative and withdrawn. No side effects to the medications are noted. The patient has been having difficult time to cope with the stress. ASSESSMENT: The patient is still depressed. PLAN: To continue the patient with the supportive therapy. I encouraged the patient to verbalize the concerns rather than to act out. [facility]# [id number]
[2019-11-15] MEDS: Pantoprazole 40 mg EC Tab PO SCH ×2 (06:31→17:02)
[2019-11-15] MEDS: Hydrocodone/APAP 5mg/325mg Tab PO PRN ×2 (06:32→17:02)
[2019-11-15] MEDS: Escitalopram Oxalate 5 mg Tab PO SCH (08:29)
[2019-11-15] MEDS: Multivitamin w/ Minerals Tab PO SCH (08:29)
[2019-11-15] MEDS: Lactobacillus Rhamnosus GG 15 Billion CFU CAP.SPRINK PO SCH (08:29)
--- NOTE | 2019-11-15 13:09 | Internal Medicine Prog Note ---
Internal Medicine Subjective - Subjective Patient seen and examined:: with staff, chart reviewed Patient is:: verbal, interactive, confused Per staff patient has:: no adverse event, no episodes of fall, confused, tolerating meds Internal Medicine Objective - Results Recent Labs: Laboratory Last Values POC Glucose 87 MG/DL (70 - 105) 11/15/19 00:15 - Physical Exam Vitals and I&O: Vital Signs Temp 98.1 F 11/15/19 06:31 Pulse 89 11/15/19 08:30 Resp 18 11/15/19 06:31 BP 122/84 11/15/19 08:30 Pulse Ox 100 11/15/19 06:31 Intake & Output 11/14/19 11/15/19 11/15/19 18:59 06:59 18:59 Intake Total 960 400 Balance 960 400 Intake: Oral 960 400 Other: # Voids 3 3 # Bowel Movements 1 0 Active Medications: Current Medications Acetaminophen (Tylenol) 650 mg PO Q4H PRN PRN Reason: Pain (Mild 1-3) Stop: 01/10/20 23:24 Acetaminophen (Tylenol) 650 mg PO Q4HR PRN PRN Reason: Temperature above 101 Stop: 01/11/20 09:48 Acetaminophen/Hydrocodone Bitart ([place] 5mg/325mg) 1 tab PO Q6H PRN PRN Reason: Pain (Moderate 4-6) Stop: 01/11/20 09:49 Last Admin: 11/15/19 06:32 Dose: 1 tab Al Hydrox/Mg Hydrox/Simethicone (Maalox) 30 ml PO Q4HR PRN PRN Reason: GI DISTRESS Stop: 01/11/20 09:48 Ascorbic Acid (Vitamin C) 500 mg PO DAILY [facility] Stop: 01/12/20 08:59 Last Admin: 11/15/19 08:29 Dose: 500 mg Bisacodyl (Dulcolax 10 Mg Supp) 10 mg RC DAILY PRN PRN Reason: Constipation Stop: 01/11/20 09:48 Ciprofloxacin (Cipro) 500 mg PO BID [facility] Stop: 01/11/20 16:59 Last Admin: 11/15/19 08:28 Dose: 500 mg Escitalopram Oxalate (Lexapro) 5 mg PO DAILY JAI; Protocol Stop: 01/12/20 08:59 Last Admin: 11/15/19 08:29 Dose: 5 mg Lactobacillus Rhamnosus (Culturelle 15b) 1 each PO DAILY JAI Stop: 01/12/20 08:59 Last Admin: 11/15/19 08:29 Dose: 1 each Lorazepam (Ativan) 0.5 mg PO Q4HR PRN; Protocol PRN Reason: Anxiety Stop: 12/11/19 23:24 Losartan Potassium (Cozaar) 50 mg PO BID JAI Stop: 01/11/20 16:59 Last Admin: 11/15/19 08:30 Dose: 50 mg Magnesium Hydroxide (Milk Of Magnesia) 30 ml PO DAILY PRN PRN Reason: Bowel Maintenance Stop: 01/11/20 09:49 Metoprolol Tartrate (Lopressor) 25 mg PO BID JAI Stop: 01/11/20 16:59 Last Admin: 11/15/19 08:29 Dose: 25 mg Mupirocin (Bactroban Oint) 1 appl TP BID [facility]AI Stop: 01/12/20 16:59 Last Admin: 11/15/19 08:30 Dose: 1 appl Pantoprazole Sodium (Protonix) 40 mg PO BIDAC JAI Stop: 01/11/20 16:29 Last Admin: 11/15/19 06:31 Dose: 40 mg Zinc Sulfate (Zinc Sulfate) 220 mg PO DAILY [facility]AI Stop: 01/12/20 08:59 Last Admin: 11/15/19 08:29 Dose: 220 mg Zolpidem Tartrate (Ambien) 5 mg PO HS PRN PRN Reason: Insomnia Stop: 01/11/20 09:49 Last Admin: 11/14/19 21:04 Dose: 5 mg General: demented HEENT: NC/AT, PERRLA Neck: Supple, No JVD Lungs: CTAB Cardiovascular: RRR, Normal S1, Normal S2, with murmur Abdomen: soft, non-tender, globular, positive bowel sound Extremities: excoriation Neurological: no change Internal Medicine Assmt/Plan - Assessment Assessment: ASSESSMENT AND PLAN: Urinary tract infection, hypertension, history of stroke with paraplegia, decubitus ulcer, paroxysmal atrial fibrillation, dementia, BPH, hypercholesterolemia, history of prostate cancer, DJD, __h/o__ neurogenic bladder, renal insufficiency, anemia. - Plan Plan: PLAN: We will continue the patient on p.o. antibiotic. Continue with adequate nutritional support. We will reconcile the patient's medication. Continue beta marina and proton pump inhibitor. We will continue to follow the patient closely. Continue fall precaution. Nutritional Asmnt/Malnutr-PDOC - Dietary Evaluation Malnutrition Findings (Please click <Entered> for more info): Nutritional Asmnt/Malnutrition Start: 11/14/19 15: 45 Text: Status: Complete Freq: Protocol: Document 11/14/19 15:45 CURTIS (Rec: 11/14/19 15:50 CURTIS [id number]) Nutritional Asmnt/Malnutrition Patient General Information Nutritional Screening Moderate Risk Diagnosis Psychosis Pertinent Medical Hx/Surgical Hx BPH, Hypercholesterolemia, Hx Prostatic Cancer, Paroxysmal AFib, Stroke, Paraplegia, Lt eye blindness Subjective Information Pt is an 84-year-old male admitted on 11/11 d/t acute depression, voluntary basis. Pt is eating an estimated 54% of meals since admit date (x2 days) Per Meal/Nutrition Activity Record. Dietary is currently providing an estimated 2270 kcals and 100 gm Pro, per Pt intake this is providing an estimated 1200 kcals and 54g Pro to meet 80% kcal and 90% Pro needs. Visited pt in room today, he had not eaten lunch. Pt stated he was still full from breakfast, and breakfast was great. Talked to patient about making sure he ate the fruits and vegetables being delivered on his plate to get all of his vitamins and minerals and to drink plenty of liquids. Pt stated he is drinking lots of water here and not thirsty at the moment. Pt Ralph Score 10, pt has Hx Decubitus ulcer. Spoke with pt nurse Yessy, pt sits in one position consistently and does not like to move, and with Hx PU (now healed) skin has high potential to tear or create new ulcers. Anthropometrics HT: 59 WT: 200 LB (90.91 kg) ABW: 170 LB (77.27 kg) BMI: 29.53 (Overweight) GI/ Skin Integrity GI: WNL, Soft, Flat, Non- tender BM: 2 x2 I/O: 240/Not Noted Skin: Redness, Dryness Ralph: 10 Diet Order: Mechanical Soft, Cardiac, RAJI Estimated Energy Needs: (ABW) 2984-7504 kcals (20-25 kcals/ kg) 60-80g Pro (0.8-1.0 g/kg) 6600-6316 ml (25-30 ml/kg) Current Diet Order/ Nutrition Support Mechanical Soft, Cardiac, RAJI Pertinent Medications Maalox (PRN), Vitamin C, Dulcolax (PRN), Culturelle 15b , Cozaar, MOM (PRN), Zinc Sulfate, Theragran Pertinent Labs 11/11: Alb 2.9, BUN/Cr 35/1.52, K 5.2, Glucose 141, Hgb/Hct 10 .9/34.7, LDL 108 Nutritional Hx/Data Height 1.75 m Height (Calculated Centimeters) 175.3 Current Weight (lbs) 90.718 kg Weight (Calculated Kilograms) 90.7 Weight (Calculated Grams) 05734.5 [place] Body Weight 144 LB (65.45 kg) % [place] Body Weight 139 Body Mass Index (BMI) 29.5 Weight Status Overweight GI Symptoms Skin Integrity/Comment: Skin: Redness, Dryness Ralph: 10 Pt Ralph Score 10, pt has Hx Decubitus ulcer. Spoke with pt nurse Yessy, pt sits in one position consistently and does not like to move, and with Hx PU (now healed) skin has high potential to tear or create new ulcers. Pt is paraplegic, not ambulatory. Estimated Nutritional Goals BEE in Kcals: Adj wt of IBW Calories/Kcals/Kg 20-25 Kcals Calculated 3347-8355 Protein: Adj wt of IBW Protein g/k.8-1.0 Protein Calculated 60-80 Fluid: ml 7863-3662 ml (25-30 ml/kg) Nutritional Problem 1. Problem Problem Altered nutrition related labs Etiology r/t pathophysiological causes Signs/Symptoms: aeb labs (11/11) Alb 2.9, BUN/Cr 35/1.52, K 5.2, Glucose 141, Hgb/Hct 10.9/34.7, LDL 108. Malnutrition Related to Morbid Obesity Malnutrition related to morbid obesity No Intervention/Recommendation Comments Continue Mechanical Soft, Cardiac, RAJI diet as tolerated . Expected Outcomes/Goals Expected Outcomes/Goals 1.PO intake to continue to meet >75% of estimated nutritional needs. 2. Monitor PO intake, wt, nutrition related labs to trend WNL, and skin integrity to trend WNL. 3.F/U as moderate risk in 3-5 days, 11/17-11/19
--- NOTE | 2019-11-15 20:30 | Consultation ---
DATE OF CONSULTATION: 11/14/2019 REFERRING PHYSICIAN: Joel Lopez M.D. TYPE OF CONSULTATION: Psychology. HISTORY OF PRESENT ILLNESS: The patient is an 84-year-old -[place] male. The following is by record review and by the patient's self report. The patient is known to this health underwriter from a previous hospitalization here last year on the Geropsychiatric unit. The [facility] is a [facility] and is being admitted due to acute depression. Upon interview, the patient states that he does not necessarily feel depressed. The patient admits that he is withdrawn and isolates from people. However, the patient stated that he mostly prefers to stay by himself and occasionally feels alone. The patient denied any suicidal ideation, plan or intention at the time of this clinical interview. The patient is being hospitalized and admitted for stabilization. PAST MEDICAL HISTORY: Please see history and physical by Dr. Sutton. PAST PSYCHIATRIC HISTORY: The patient is under the care of Joel Lopez MD at his placement for Psychiatry. It is unknown whether the patient is also under the care of a psychologist there. The patient has 1 previous hospitalization here on the Geropsychiatric unit. The patient has a history of depression. SUBSTANCE ABUSE HISTORY: The patient denied any history of alcohol, tobacco or illicit or recreational drug use. PSYCHOSOCIAL HISTORY: The patient states that he is from his and has 6 children; 3 are stepchildren and 3 are biological with his . The patient states he feels somewhat estranged from his family and there has not been much contact. 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 The patient is retired. He stated he has friends at his placement and wishes to return there. The patient states no family members are part of his support system, but he does have friends at the facility and also one friend who comes and visits him at his placement. He denied any history of abuse or any current legal problems. MENTAL STATUS EXAMINATION: The patient appears to be his stated age. The patient's attitude is open and cooperative. Eye contact is fair. Mood is dysthymic. He denied any hopeless, helpless or purposeless feelings. Affect is constricted. Speech is spontaneous. Thought process shows to be linear and logical, but confused at times. The patient had difficulty recalling the milestones in his life with respect to his family. The patient's behavior has been withdrawn and isolative according to the staff here and the staff at his facility. However, he admits poor appetite and increased sleep. The patient denies any hallucinations or delusions or any suicidal ideation, plan or intention. Impulse control is intact. Sensorium is alert and oriented x 2. The patient's concentration is fair. He was able to sustain focus and attention. The patient's immediate memory seems intact. Short term memory has some impairment as well as long-term memory. The patient was unable to recall certain milestones in life and also the names of his stepchildren. The patient did not participate in the interpretation of proverbs. Insight is fair to poor. Judgment is compromised. DIAGNOSTIC IMPRESSION AXIS I: Major depressive disorder, recurrent, moderate. AXIS II: None. AXIS III: Per Dr. Sutton. TREATMENT PLAN: The patient has been seen by Dr. Santiago for psychiatric evaluation and for the management of the patient's psychotropic medications. The patient will be closely monitored. We will provide supportive psychotherapy to include a daily opportunity for the patient to verbalize any passive suicide ideation or any thoughts of hopelessness, helplessness or purposelessness. We will provide cognitive behavioral therapy to reduce the patient's depression. We will provide coping strategies for phase of life issues. The patient has been started on a low dose of Lexapro according to the attending psychiatrist. We will follow up in 2-3 days to continue the present treatment. Thank you, Dr. Santiago and Dr. Lopez for this consult and the opportunity to participate with you in this patient's care. JOB# [id number] KYLEE
--- NOTE | 2019-11-16 01:16 | Progress Notes ---
DATE: 11/15/2019 PSYCHIATRIC PROGRESS NOTE SUBJECTIVE: Staff was spoken to. The patient is interviewed. Mood is noted to be depressed. Affect is constricted. The patient is isolative and withdrawn. Coping skills at this time are noted to be poor. No side effects to the medications are noted. The patient has been encouraged to comply with the treatment. The patient is currently on low dose of Lexapro and has been able to tolerate the medication. ASSESSMENT: The patient is still depressed. PLAN: To continue the patient with the supportive therapy and followup. JOB# [id number]
[2019-11-16] MEDS: Pantoprazole 40 mg EC Tab PO SCH ×2 (06:42→16:59)
[2019-11-16] MEDS: Multivitamin w/ Minerals Tab PO SCH (08:48)
[2019-11-16] MEDS: Lactobacillus Rhamnosus GG 15 Billion CFU CAP.SPRINK PO SCH (08:49)
--- NOTE | 2019-11-16 13:24 | Internal Medicine Prog Note ---
Internal Medicine Subjective - Subjective Patient seen and examined:: with staff, chart reviewed Patient is:: verbal, interactive, confused Per staff patient has:: no adverse event, no episodes of fall, confused, tolerating meds Internal Medicine Objective - Results Recent Labs: Laboratory Last Values POC Glucose 87 MG/DL (70 - 105) 11/15/19 00:15 - Physical Exam Vitals and I&O: Vital Signs Temp 97.8 F 11/16/19 06:42 Pulse 88 11/16/19 08:51 Resp 20 11/16/19 06:42 BP 106/69 11/16/19 08:51 Pulse Ox 99 11/16/19 06:42 Intake & Output 11/15/19 11/16/19 11/16/19 18:59 06:59 18:59 Intake Total 900 120 Balance 900 120 Intake: Oral 900 120 Other: # Voids 4 3 # Bowel Movements 2 0 Active Medications: Current Medications Acetaminophen (Tylenol) 650 mg PO Q4H PRN PRN Reason: Pain (Mild 1-3) Stop: 01/10/20 23:24 Acetaminophen (Tylenol) 650 mg PO Q4HR PRN PRN Reason: Temperature above 101 Stop: 01/11/20 09:48 Acetaminophen/Hydrocodone Bitart ([place] 5mg/325mg) 1 tab PO Q6H PRN PRN Reason: Pain (Moderate 4-6) Stop: 01/11/20 09:49 Last Admin: 11/15/19 17:02 Dose: 1 tab Al Hydrox/Mg Hydrox/Simethicone (Maalox) 30 ml PO Q4HR PRN PRN Reason: GI DISTRESS Stop: 01/11/20 09:48 Ascorbic Acid (Vitamin C) 500 mg PO DAILY [facility] Stop: 01/12/20 08:59 Last Admin: 11/16/19 08:49 Dose: 500 mg Bisacodyl (Dulcolax 10 Mg Supp) 10 mg RC DAILY PRN PRN Reason: Constipation Stop: 01/11/20 09:48 Ciprofloxacin (Cipro) 500 mg PO BID [facility] Stop: 01/11/20 16:59 Last Admin: 11/16/19 08:48 Dose: 500 mg Escitalopram Oxalate (Lexapro) 10 mg PO DAILY JAI; Protocol Stop: 01/15/20 08:59 Last Admin: 02/12/20 08:54 Dose: 10 mg Lactobacillus Rhamnosus (Culturelle 15b) 1 each PO DAILY [facility] Stop: 01/12/20 08:59 Last Admin: 11/16/19 08:49 Dose: 1 each Lorazepam (Ativan) 0.5 mg PO Q4HR PRN; Protocol PRN Reason: Anxiety Stop: 12/11/19 23:24 Losartan Potassium (Cozaar) 50 mg PO BID [facility]AI Stop: 01/11/20 16:59 Last Admin: 11/16/19 08:49 Dose: Not Given Magnesium Hydroxide (Milk Of Magnesia) 30 ml PO DAILY PRN PRN Reason: Bowel Maintenance Stop: 01/11/20 09:49 Metoprolol Tartrate (Lopressor) 25 mg PO BID [facility]AI Stop: 01/11/20 16:59 Last Admin: 11/16/19 08:51 Dose: 25 mg Mupirocin (Bactroban Oint) 1 appl TP BID [facility] Stop: 01/12/20 16:59 Last Admin: 11/16/19 08:48 Dose: 1 appl Pantoprazole Sodium (Protonix) 40 mg PO BIDAC [facility] Stop: 01/11/20 16:29 Last Admin: 11/16/19 06:42 Dose: 40 mg Zinc Sulfate (Zinc Sulfate) 220 mg PO DAILY [facility] Stop: 01/12/20 08:59 Last Admin: 11/16/19 08:48 Dose: 220 mg Zolpidem Tartrate (Ambien) 5 mg PO HS PRN PRN Reason: Insomnia Stop: 01/11/20 09:49 Last Admin: 11/14/19 21:04 Dose: 5 mg General: demented HEENT: NC/AT, PERRLA Neck: Supple, No JVD Lungs: CTAB Cardiovascular: RRR, Normal S1, Normal S2, with murmur Abdomen: soft, non-tender, globular, positive bowel sound Extremities: excoriation Neurological: no change Internal Medicine Assmt/Plan - Assessment Assessment: ASSESSMENT AND PLAN: Urinary tract infection, hypertension, history of stroke with paraplegia, decubitus ulcer, paroxysmal atrial fibrillation, dementia, BPH, hypercholesterolemia, history of prostate cancer, DJD, __h/o__ neurogenic bladder, renal insufficiency, anemia. - Plan Plan: PLAN: We will continue the patient on p.o. antibiotic. Continue with adequate nutritional support. We will reconcile the patient's medication. Continue beta marina and proton pump inhibitor. We will continue to follow the patient closely. Continue fall precaution. Nutritional Asmnt/Malnutr-PDOC - Dietary Evaluation Malnutrition Findings (Please click <Entered> for more info): Nutritional Asmnt/Malnutrition Start: 11/14/19 15: 45 Text: Status: Complete Freq: Protocol: Document 11/14/19 15:45 CURTIS (Rec: 11/14/19 15:50 CURTIS [email or web address]) Nutritional Asmnt/Malnutrition Patient General Information Nutritional Screening Moderate Risk Diagnosis Psychosis Pertinent Medical Hx/Surgical Hx BPH, Hypercholesterolemia, Hx Prostatic Cancer, Paroxysmal AFib, Stroke, Paraplegia, Lt eye blindness Subjective Information Pt is an 84-year-old male admitted on 11/11 d/t acute depression, voluntary basis. Pt is eating an estimated 54% of meals since admit date (x2 days) Per Meal/Nutrition Activity Record. Dietary is currently providing an estimated 2270 kcals and 100 gm Pro, per Pt intake this is providing an estimated 1200 kcals and 54g Pro to meet 80% kcal and 90% Pro needs. Visited pt in room today, he had not eaten lunch. Pt stated he was still full from breakfast, and breakfast was great. Talked to patient about making sure he ate the fruits and vegetables being delivered on his plate to get all of his vitamins and minerals and to drink plenty of liquids. Pt stated he is drinking lots of water here and not thirsty at the moment. Pt Ralph Score 10, pt has Hx Decubitus ulcer. Spoke with pt nurse Yessy, pt sits in one position consistently and does not like to move, and with Hx PU (now healed) skin has high potential to tear or create new ulcers. Anthropometrics HT: 59 WT: 200 LB (90.91 kg) ABW: 170 LB (77.27 kg) BMI: 29.53 (Overweight) GI/ Skin Integrity GI: WNL, Soft, Flat, Non- tender BM: 11/13 x2 I/O: 240/Not Noted Skin: Redness, Dryness Ralph: 10 Diet Order: Mechanical Soft, Cardiac, RAJI Estimated Energy Needs: (ABW) 8425-1266 kcals (20-25 kcals/ kg) 60-80g Pro (0.8-1.0 g/kg) 0001-8890 ml (25-30 ml/kg) Current Diet Order/ Nutrition Support Mechanical Soft, Cardiac, RAJI Pertinent Medications Maalox (PRN), Vitamin C, Dulcolax (PRN), Culturelle 15b , Cozaar, MOM (PRN), Zinc Sulfate, Theragran Pertinent Labs 11/11: Alb 2.9, BUN/Cr 35/1.52, K 5.2, Glucose 141, Hgb/Hct 10 .9/34.7, LDL 108 Nutritional Hx/Data Height 1.75 m Height (Calculated Centimeters) 175.3 Current Weight (lbs) 90.718 kg Weight (Calculated Kilograms) 90.7 Weight (Calculated Grams) 60771.5 [place] Body Weight 144 LB (65.45 kg) % [place] Body Weight 139 Body Mass Index (BMI) 29.5 Weight Status Overweight GI Symptoms Skin Integrity/Comment: Skin: Redness, Dryness Ralph: 10 Pt Ralph Score 10, pt has Hx Decubitus ulcer. Spoke with pt nurse Yessy, pt sits in one position consistently and does not like to move, and with Hx PU (now healed) skin has high potential to tear or create new ulcers. Pt is paraplegic, not ambulatory. Estimated Nutritional Goals BEE in Kcals: Adj wt of IBW Calories/Kcals/Kg 20-25 Kcals Calculated 2877-4553 Protein: Adj wt of IBW Protein g/k.8-1.0 Protein Calculated 60-80 Fluid: ml 3800-1301 ml (25-30 ml/kg) Nutritional Problem 1. Problem Problem Altered nutrition related labs Etiology r/t pathophysiological causes Signs/Symptoms: aeb labs (11/11) Alb 2.9, BUN/Cr 35/1.52, K 5.2, Glucose 141, Hgb/Hct 10.9/34.7, LDL 108. Malnutrition Related to Morbid Obesity Malnutrition related to morbid obesity No Intervention/Recommendation Comments Continue Mechanical Soft, Cardiac, RAJI diet as tolerated . Expected Outcomes/Goals Expected Outcomes/Goals 1.PO intake to continue to meet >75% of estimated nutritional needs. 2. Monitor PO intake, wt, nutrition related labs to trend WNL, and skin integrity to trend WNL. 3.F/U as moderate risk in 3-5 days, 11/17-11/19
--- NOTE | 2019-11-16 14:24 | Progress Notes ---
DATE: 11/16/2019 PSYCHIATRIC PROGRESS NOTE SUBJECTIVE: Staff was spoken to. The patient is interviewed. Mood is noted to be depressed. Affect is constricted. The patient's insight and judgment at this time are noted to be still impaired and impulse control seems to be limited. The patient has been having difficult time to cope with the stress. The patient at this time is isolative and withdrawn and has been not too keen on getting into any of the groups. The patient is stating that he is frustrated with his medical problems. The patient has short-term memory deficits, but long-term memory seems to be fair at this time. ASSESSMENT: The patient is still depressed. PLAN: To continue the patient with the supportive therapy. I encouraged the patient to verbalize the concerns rather than to act out. JOB# [id number]
[2019-11-17] MEDS: Pantoprazole 40 mg EC Tab PO SCH (06:46)
[2019-11-17] MEDS: Lactobacillus Rhamnosus GG 15 Billion CFU CAP.SPRINK PO SCH (09:34)
[2019-11-17] MEDS: Multivitamin w/ Minerals Tab PO SCH (09:35)
--- NOTE | 2019-11-17 10:39 | Progress Notes ---
DATE: 11/16/2019 PSYCHOLOGY PROGRESS NOTE SUBJECTIVE: The patient is seen and interviewed. Case is discussed with staff. The patient presents as less depressed and is open and cooperative and friendly. The patient continues to deny that he feels depressed and is requesting to be discharged and returned to his placement. The patient was informed to discuss this with the attending psychiatrist. Staff reports the patient continues to be isolative and withdrawn; however, the patient states that is what he prefers, which is to be by himself. The patient continues to be non-participatory in the milieu therapy. OBJECTIVE: Mood is stabilizing. Affect is mood congruent and reactive. Thought process shows to be linear and logical and goal oriented. The patient denied any hallucinations or delusions. Behavior has included compliance with medication, but not participating in the milieu therapy. ASSESSMENT AND PLAN: The patient appears to be improving, but is still isolating. PLAN: We will continue the supportive psychotherapy to include cognitive behavioral therapy. We provided this as well as insight oriented therapy. We provided coping strategies for phase of life issues. We provided remotivation for the patient to get out of bed and to participate in the activities and the other therapies offered on the geropsychiatric unit. We encouraged the patient to verbalize his concerns. The patient appears to be improving moderately. We will follow up in 2-3 days, if the patient remains admitted on the unit. [facility]# [id number] KYLEE
--- NOTE | 2019-11-17 15:31 | Internal Medicine Prog Note ---
Internal Medicine Subjective - Subjective Patient seen and examined:: with staff, chart reviewed Patient is:: verbal, interactive, confused Per staff patient has:: no adverse event, no episodes of fall, confused, tolerating meds Internal Medicine Objective - Results Recent Labs: Laboratory Last Values POC Glucose 87 MG/DL (70 - 105) 11/15/19 00:15 - Physical Exam Vitals and I&O: Vital Signs Temp 97.5 F 11/17/19 13:47 Pulse 81 11/17/19 13:47 Resp 18 11/17/19 13:47 BP 130/79 11/17/19 13:47 Pulse Ox 100 11/17/19 13:47 Intake & Output 11/16/19 11/17/19 11/17/19 18:59 06:59 18:59 Intake Total 120 Balance 120 Intake: Oral 120 Other: # Voids 3 3 # Bowel Movements 1 Active Medications: Current Medications Acetaminophen (Tylenol) 650 mg PO Q4H PRN PRN Reason: Pain (Mild 1-3) Stop: 01/10/20 23:24 Acetaminophen (Tylenol) 650 mg PO Q4HR PRN PRN Reason: Temperature above 101 Stop: 01/11/20 09:48 Acetaminophen/Hydrocodone Bitart ([place] 5mg/325mg) 1 tab PO Q6H PRN PRN Reason: Pain (Moderate 4-6) Stop: 01/11/20 09:49 Last Admin: 11/15/19 17:02 Dose: 1 tab Al Hydrox/Mg Hydrox/Simethicone (Maalox) 30 ml PO Q4HR PRN PRN Reason: GI DISTRESS Stop: 01/11/20 09:48 Ascorbic Acid (Vitamin C) 500 mg PO DAILY [facility] Stop: 01/12/20 08:59 Last Admin: 11/17/19 09:33 Dose: 500 mg Bisacodyl (Dulcolax 10 Mg Supp) 10 mg RC DAILY PRN PRN Reason: Constipation Stop: 01/11/20 09:48 Ciprofloxacin (Cipro) 500 mg PO BID [facility] Stop: 01/11/20 16:59 Last Admin: 11/17/19 09:34 Dose: 500 mg Escitalopram Oxalate (Lexapro) 10 mg PO DAILY [facility]; Protocol Stop: 01/15/20 08:59 Last Admin: 11/17/19 09:34 Dose: 10 mg Lactobacillus Rhamnosus (Culturelle 15b) 1 each PO DAILY [facility] Stop: 01/12/20 08:59 Last Admin: 11/17/19 09:34 Dose: 1 each Lorazepam (Ativan) 0.5 mg PO Q4HR PRN; Protocol PRN Reason: Anxiety Stop: 12/11/19 23:24 Losartan Potassium (Cozaar) 50 mg PO BID [facility] Stop: 01/11/20 16:59 Last Admin: 11/17/19 09:34 Dose: 50 mg Magnesium Hydroxide (Milk Of Magnesia) 30 ml PO DAILY PRN PRN Reason: Bowel Maintenance Stop: 01/11/20 09:49 Metoprolol Tartrate (Lopressor) 25 mg PO BID [facility] Stop: 01/11/20 16:59 Last Admin: 11/17/19 09:35 Dose: 25 mg Mupirocin (Bactroban Oint) 1 appl TP BID [facility] Stop: 01/12/20 16:59 Last Admin: 11/17/19 09:36 Dose: 1 appl Pantoprazole Sodium (Protonix) 40 mg PO DAILY [facility] Stop: 01/17/20 08:59 Zinc Sulfate (Zinc Sulfate) 220 mg PO DAILY [facility] Stop: 01/12/20 08:59 Last Admin: 11/17/19 09:36 Dose: 220 mg Zolpidem Tartrate (Ambien) 5 mg PO HS PRN PRN Reason: Insomnia Stop: 01/11/20 09:49 Last Admin: 11/14/19 21:04 Dose: 5 mg General: demented HEENT: NC/AT, PERRLA Neck: Supple, No JVD Lungs: CTAB Cardiovascular: RRR, Normal S1, Normal S2, with murmur Abdomen: soft, non-tender, globular, positive bowel sound Extremities: excoriation Neurological: no change Internal Medicine Assmt/Plan - Assessment Assessment: ASSESSMENT AND PLAN: Urinary tract infection, hypertension, history of stroke with paraplegia, decubitus ulcer, paroxysmal atrial fibrillation, dementia, BPH, hypercholesterolemia, history of prostate cancer, DJD, __h/o__ neurogenic bladder, renal insufficiency, anemia. - Plan Plan: PLAN: We will continue the patient on p.o. antibiotic. Continue with adequate nutritional support. We will reconcile the patient's medication. Continue beta marina and proton pump inhibitor. We will continue to follow the patient closely. Continue fall precaution. Nutritional Asmnt/Malnutr-PDOC - Dietary Evaluation Malnutrition Findings (Please click <Entered> for more info): Nutritional Asmnt/Malnutrition Start: 11/14/19 15: 45 Text: Status: Complete Freq: Protocol: Document 11/14/19 15:45 CURTIS (Rec: 11/14/19 15:50 CURTIS [id number]) Nutritional Asmnt/Malnutrition Patient General Information Nutritional Screening Moderate Risk Diagnosis Psychosis Pertinent Medical Hx/Surgical Hx BPH, Hypercholesterolemia, Hx Prostatic Cancer, Paroxysmal AFib, Stroke, Paraplegia, Lt eye blindness Subjective Information Pt is an 84-year-old male admitted on 11/11 d/t acute depression, voluntary basis. Pt is eating an estimated 54% of meals since admit date (x2 days) Per Meal/Nutrition Activity Record. Dietary is currently providing an estimated 2270 kcals and 100 gm Pro, per Pt intake this is providing an estimated 1200 kcals and 54g Pro to meet 80% kcal and 90% Pro needs. Visited pt in room today, he had not eaten lunch. Pt stated he was still full from breakfast, and breakfast was great. Talked to patient about making sure he ate the fruits and vegetables being delivered on his plate to get all of his vitamins and minerals and to drink plenty of liquids. Pt stated he is drinking lots of water here and not thirsty at the moment. Pt Ralph Score 10, pt has Hx Decubitus ulcer. Spoke with pt nurse Yessy, pt sits in one position consistently and does not like to move, and with Hx PU (now healed) skin has high potential to tear or create new ulcers. Anthropometrics HT: 59 WT: 200 LB (90.91 kg) ABW: 170 LB (77.27 kg) BMI: 29.53 (Overweight) GI/ Skin Integrity GI: WNL, Soft, Flat, Non- tender BM: 11/13 x2 I/O: 240/Not Noted Skin: Redness, Dryness Ralph: 10 Diet Order: Mechanical Soft, Cardiac, RAJI Estimated Energy Needs: (ABW) [id number] kcals (20-25 kcals/ kg) 60-80g Pro (0.8-1.0 g/kg) 5196-9494 ml (25-30 ml/kg) Current Diet Order/ Nutrition Support Mechanical Soft, Cardiac, RAJI Pertinent Medications Maalox (PRN), Vitamin C, Dulcolax (PRN), Culturelle 15b , Cozaar, MOM (PRN), Zinc Sulfate, Theragran Pertinent Labs 11/11: Alb 2.9, BUN/Cr 35/1.52, K 5.2, Glucose 141, Hgb/Hct 10 .9/34.7, LDL 108 Nutritional Hx/Data Height 1.75 m Height (Calculated Centimeters) 175.3 Current Weight (lbs) 90.718 kg Weight (Calculated Kilograms) 90.7 Weight (Calculated Grams) 08978.5 [place] Body Weight 144 LB (65.45 kg) % [place] Body Weight 139 Body Mass Index (BMI) 29.5 Weight Status Overweight GI Symptoms Skin Integrity/Comment: Skin: Redness, Dryness Ralph: 10 Pt Ralph Score 10, pt has Hx Decubitus ulcer. Spoke with pt nurse Yessy, pt sits in one position consistently and does not like to move, and with Hx PU (now healed) skin has high potential to tear or create new ulcers. Pt is paraplegic, not ambulatory. Estimated Nutritional Goals BEE in Kcals: Adj wt of IBW Calories/Kcals/Kg 20-25 Kcals Calculated 8599-2879 Protein: Adj wt of IBW Protein g/k.8-1.0 Protein Calculated 60-80 Fluid: ml 3636-2216 ml (25-30 ml/kg) Nutritional Problem 1. Problem Problem Altered nutrition related labs Etiology r/t pathophysiological causes Signs/Symptoms: aeb labs (11/11) Alb 2.9, BUN/Cr 35/1.52, K 5.2, Glucose 141, Hgb/Hct 10.9/34.7, LDL 108. Malnutrition Related to Morbid Obesity Malnutrition related to morbid obesity No Intervention/Recommendation Comments Continue Mechanical Soft, Cardiac, RAJI diet as tolerated . Expected Outcomes/Goals Expected Outcomes/Goals 1.PO intake to continue to meet >75% of estimated nutritional needs. 2. Monitor PO intake, wt, nutrition related labs to trend WNL, and skin integrity to trend WNL. 3.F/U as moderate risk in 3-5 days, 11/17-11/19
--- NOTE | 2019-11-17 20:12 | Progress Notes ---
DATE: 11/17/2019 SUBJECTIVE: The patient was resting in bed, alert, calm and cooperative. The patient requested to talk to this global technical writer. The patient reported that he is not suicidal. The patient stated that he does not know who said that he is suicidal. When asked if he is happy or sad, the patient admitted to feeling depressed because of his health situation. The patient appeared to be somewhat poor historian. The patient was not able to give the name of the facility where he was prior to coming here. He mentioned something spring so when asked if it is [facility], the patient stated yes. When asked if his family had been here to see him, the patient stated no. When asked how many children he has, the patient stated that he has 19 grandchildren, but when I asked again as to how many children he has, the patient was not able to come up with the number. The patient stated that she has 1 daughter, but not able to say where she lives and stated that he has not seen her in a while. The patient stated that he thought that he would be discharged today. OBJECTIVE: The staff reported that the patient has been doing okay. He has been cooperative with care and treatment. The staff reported that the patient has been depressed, but no suicidal or homicidal ideation, plan or intention. Staff reported that the patient has been compliant with medications and he tried to do for himself as much as he could. ASSESSMENT: 1. Major depressive disorder. 2. Mood disorder, depressed due to medical condition. 3. Vascular dementia with depressed mood. PLAN: We will continue the patient on Lexapro 10 mg p.o. daily, this was started yesterday. If he patient continued to be depressed, consider increasing up to 20 mg. We will continue with Velasquez. JOB# [id number]
[2019-11-18] MEDS: Lactobacillus Rhamnosus GG 15 Billion CFU CAP.SPRINK PO SCH (08:26)
[2019-11-18] MEDS: Pantoprazole 40 mg/Packet PO SCH (08:26)
[2019-11-18] MEDS: Multivitamin w/ Minerals Tab PO SCH (08:26)
--- NOTE | 2019-11-18 08:55 | Progress Notes ---
DATE: 11/18/2019 SUBJECTIVE: The patient was resting in bed, alert, calm and pleasant. The staff served him his breakfast tray. The patient reported that he is doing okay. He slept well last night. The patient reports that he has been eating okay. When asked where was he from, the patient stated [place], [place]. The patient indicated that he is going back there. OBJECTIVE: The staff reported that the patient has been doing okay. No behavioral problem. He slept well last night. He continued to be compliant with medications. ASSESSMENT: 1. Major depressive disorder. 2. Mood disorder, depressed due to medical condition. 3. Vascular dementia with depressed mood. PLAN: Since the patient appeared to be doing reasonably well on current medications, we will maintain the current medications and monitor and not discharge as soon as the patient is stable for a couple of days. JOB# [id number]
--- NOTE | 2019-11-18 15:47 | Internal Medicine Prog Note ---
Internal Medicine Subjective - Subjective Patient seen and examined:: with staff, chart reviewed Patient is:: verbal, interactive, confused Per staff patient has:: no adverse event, no episodes of fall, confused, tolerating meds Internal Medicine Objective - Results Recent Labs: Laboratory Last Values POC Glucose 87 MG/DL (70 - 105) 11/15/19 00:15 - Physical Exam Vitals and I&O: Vital Signs Temp 98.4 F 11/18/19 06:40 Pulse 64 11/18/19 08:26 Resp 19 11/18/19 06:40 BP 149/87 11/18/19 08:26 Pulse Ox 99 11/18/19 06:40 Intake & Output 11/17/19 11/18/19 11/18/19 18:59 06:59 18:59 Intake Total 240 Balance 240 Intake: Oral 240 Other: # Voids 3 2 # Bowel Movements 0 0 Active Medications: Current Medications Acetaminophen (Tylenol) 650 mg PO Q4H PRN PRN Reason: Pain (Mild 1-3) Stop: 01/10/20 23:24 Acetaminophen (Tylenol) 650 mg PO Q4HR PRN PRN Reason: Temperature above 101 Stop: 01/11/20 09:48 Acetaminophen/Hydrocodone Bitart ([place] 5mg/325mg) 1 tab PO Q6H PRN PRN Reason: Pain (Moderate 4-6) Stop: 01/11/20 09:49 Last Admin: 11/15/19 17:02 Dose: 1 tab Al Hydrox/Mg Hydrox/Simethicone (Maalox) 30 ml PO Q4HR PRN PRN Reason: GI DISTRESS Stop: 01/11/20 09:48 Ascorbic Acid (Vitamin C) 500 mg PO DAILY [facility] Stop: 01/12/20 08:59 Last Admin: 11/18/19 08:26 Dose: 500 mg Bisacodyl (Dulcolax 10 Mg Supp) 10 mg RC DAILY PRN PRN Reason: Constipation Stop: 01/11/20 09:48 Ciprofloxacin (Cipro) 500 mg PO BID [facility] Stop: 01/11/20 16:59 Last Admin: 11/18/19 08:26 Dose: 500 mg Escitalopram Oxalate (Lexapro) 10 mg PO DAILY [facility]; Protocol Stop: 01/15/20 08:59 Last Admin: 11/18/19 08:25 Dose: 10 mg Lactobacillus Rhamnosus (Culturelle 15b) 1 each PO DAILY [facility] Stop: 01/12/20 08:59 Last Admin: 11/18/19 08:26 Dose: 1 each Lorazepam (Ativan) 0.5 mg PO Q4HR PRN; Protocol PRN Reason: Anxiety Stop: 12/11/19 23:24 Losartan Potassium (Cozaar) 50 mg PO BID [facility] Stop: 01/11/20 16:59 Last Admin: 11/18/19 08:25 Dose: 50 mg Magnesium Hydroxide (Milk Of Magnesia) 30 ml PO DAILY PRN PRN Reason: Bowel Maintenance Stop: 01/11/20 09:49 Metoprolol Tartrate (Lopressor) 25 mg PO BID [facility] Stop: 01/11/20 16:59 Last Admin: 11/18/19 08:26 Dose: 25 mg Mupirocin (Bactroban Oint) 1 appl TP BID [facility] Stop: 01/12/20 16:59 Last Admin: 11/18/19 08:27 Dose: 1 appl Pantoprazole Sodium (Protonix) 40 mg PO DAILY [facility] Stop: 01/17/20 08:59 Last Admin: 11/18/19 08:26 Dose: 40 mg Zinc Sulfate (Zinc Sulfate) 220 mg PO DAILY [facility] Stop: 01/12/20 08:59 Last Admin: 11/18/19 08:25 Dose: 220 mg Zolpidem Tartrate (Ambien) 5 mg PO HS PRN PRN Reason: Insomnia Stop: 01/11/20 09:49 Last Admin: 11/14/19 21:04 Dose: 5 mg General: demented HEENT: NC/AT, PERRLA Neck: Supple, No JVD Lungs: CTAB Cardiovascular: RRR, Normal S1, Normal S2, with murmur Abdomen: soft, non-tender, globular, positive bowel sound Extremities: excoriation Neurological: no change Internal Medicine Assmt/Plan - Assessment Assessment: ASSESSMENT AND PLAN: Urinary tract infection, hypertension, history of stroke with paraplegia, decubitus ulcer, paroxysmal atrial fibrillation, dementia, BPH, hypercholesterolemia, history of prostate cancer, DJD, __h/o__ neurogenic bladder, renal insufficiency, anemia. - Plan Plan: PLAN: We will continue the patient on p.o. antibiotic. Continue with adequate nutritional support. We will reconcile the patient's medication. Continue beta marina and proton pump inhibitor. We will continue to follow the patient closely. Continue fall precaution. refer to ot Nutritional Asmnt/Malnutr-PDOC - Dietary Evaluation Malnutrition Findings (Please click <Entered> for more info): Nutritional Asmnt/Malnutrition Start: 11/14/19 15: 45 Text: Status: Complete Freq: Protocol: Document 11/14/19 15:45 CURTIS (Rec: 11/14/19 15:50 CURTIS [id number]) Nutritional Asmnt/Malnutrition Patient General Information Nutritional Screening Moderate Risk Diagnosis Psychosis Pertinent Medical Hx/Surgical Hx BPH, Hypercholesterolemia, Hx Prostatic Cancer, Paroxysmal AFib, Stroke, Paraplegia, Lt eye blindness Subjective Information Pt is an 84-year-old male admitted on 11/11 d/t acute depression, voluntary basis. Pt is eating an estimated 54% of meals since admit date (x2 days) Per Meal/Nutrition Activity Record. Dietary is currently providing an estimated 2270 kcals and 100 gm Pro, per Pt intake this is providing an estimated 1200 kcals and 54g Pro to meet 80% kcal and 90% Pro needs. Visited pt in room today, he had not eaten lunch. Pt stated he was still full from breakfast, and breakfast was great. Talked to patient about making sure he ate the fruits and vegetables being delivered on his plate to get all of his vitamins and minerals and to drink plenty of liquids. Pt stated he is drinking lots of water here and not thirsty at the moment. Pt Ralph Score 10, pt has Hx Decubitus ulcer. Spoke with pt nurse Yessy, pt sits in one position consistently and does not like to move, and with Hx PU (now healed) skin has high potential to tear or create new ulcers. Anthropometrics HT: 59 WT: 200 LB (90.91 kg) ABW: 170 LB (77.27 kg) BMI: 29.53 (Overweight) GI/ Skin Integrity GI: WNL, Soft, Flat, Non- tender BM: 11/13 x2 I/O: 240/Not Noted Skin: Redness, Dryness Ralph: 10 Diet Order: Mechanical Soft, Cardiac, RAJI Estimated Energy Needs: (ABW) 1902-6545 kcals (20-25 kcals/ kg) 60-80g Pro (0.8-1.0 g/kg) 3398-0168 ml (25-30 ml/kg) Current Diet Order/ Nutrition Support Mechanical Soft, Cardiac, RAJI Pertinent Medications Maalox (PRN), Vitamin C, Dulcolax (PRN), Culturelle 15b , Cozaar, MOM (PRN), Zinc Sulfate, Theragran Pertinent Labs 11/11: Alb 2.9, BUN/Cr 35/1.52, K 5.2, Glucose 141, Hgb/Hct 10 .9/34.7, LDL 108 Nutritional Hx/Data Height 1.75 m Height (Calculated Centimeters) 175.3 Current Weight (lbs) 90.718 kg Weight (Calculated Kilograms) 90.7 Weight (Calculated Grams) 06456.5 [place] Body Weight 144 LB (65.45 kg) % [place] Body Weight 139 Body Mass Index (BMI) 29.5 Weight Status Overweight GI Symptoms Skin Integrity/Comment: Skin: Redness, Dryness Ralph: 10 Pt Ralph Score 10, pt has Hx Decubitus ulcer. Spoke with pt nurse Yessy, pt sits in one position consistently and does not like to move, and with Hx PU (now healed) skin has high potential to tear or create new ulcers. Pt is paraplegic, not ambulatory. Estimated Nutritional Goals BEE in Kcals: Adj wt of IBW Calories/Kcals/Kg 20-25 Kcals Calculated 0062-1113 Protein: Adj wt of IBW Protein g/k.8-1.0 Protein Calculated 60-80 Fluid: ml 1818-1007 ml (25-30 ml/kg) Nutritional Problem 1. Problem Problem Altered nutrition related labs Etiology r/t pathophysiological causes Signs/Symptoms: aeb labs (11/11) Alb 2.9, BUN/Cr 35/1.52, K 5.2, Glucose 141, Hgb/Hct 10.9/34.7, LDL 108. Malnutrition Related to Morbid Obesity Malnutrition related to morbid obesity No Intervention/Recommendation Comments Continue Mechanical Soft, Cardiac, RAJI diet as tolerated . Expected Outcomes/Goals Expected Outcomes/Goals 1.PO intake to continue to meet >75% of estimated nutritional needs. 2. Monitor PO intake, wt, nutrition related labs to trend WNL, and skin integrity to trend WNL. 3.F/U as moderate risk in 3-5 days, 11/17-11/19
--- NOTE | 2019-11-19 03:34 | Progress Notes ---
DATE: 11/18/2019 PSYCHOLOGY PROGRESS NOTE SUBJECTIVE: The patient is seen in his room in bed. The patient is somnolent, but arousable verbally. The patient states that he is doing okay. The patient also asked this video game script writer again to be discharged and stated that he is not depressed. Staff reports the patient has been compliant with his care and treatment. OBJECTIVE: Mood is stable. Affect is mood congruent and reactive. Thought process shows to be goal oriented and linear and logical. The patient denies any delusions or hallucinations or any suicidal ideation, plan or intention. The patient's behavior has been compliant with medications. The patient is isolative, but states he prefers to stay by himself. ASSESSMENT: The patient seems to be approaching baseline and is stabilizing. PLAN: The patient was provided with motivational enhancement to get out of bed and participate in some of the milieu therapy, i.e., activities or group therapy. The patient is doing reasonably well. The patient is requesting to be discharged. It was discussed with the patient to discuss this with Dr. Lopez and/or Dr. Santiago. We will follow up in 2-3 days to continue the present treatment. Included are coping strategies for phase of life issues as well as insight oriented therapy to reduce the patient's depression. JOB# [id number] [email or web address]
[2019-11-19] MEDS: Pantoprazole 40 mg/Packet PO SCH (09:25)
[2019-11-19] MEDS: Multivitamin w/ Minerals Tab PO SCH (09:26)
[2019-11-19] MEDS: Lactobacillus Rhamnosus GG 15 Billion CFU CAP.SPRINK PO SCH (09:26)
--- NOTE | 2019-11-19 13:57 | Internal Medicine Prog Note ---
Internal Medicine Subjective - Subjective Patient seen and examined:: with staff, chart reviewed Patient is:: verbal, interactive, confused Per staff patient has:: no adverse event, no episodes of fall, confused, tolerating meds Internal Medicine Objective - Results Recent Labs: Laboratory Last Values POC Glucose 87 MG/DL (70 - 105) 11/15/19 00:15 - Physical Exam Vitals and I&O: Vital Signs Temp 98.1 F 11/19/19 07:00 Pulse 86 11/19/19 09:27 Resp 18 11/19/19 08:00 BP 152/80 11/19/19 09:27 Pulse Ox 99 11/19/19 07:00 Intake & Output 11/18/19 11/19/19 11/19/19 18:59 06:59 18:59 Intake Total 120 Output Total 1 Balance 119 Intake: Oral 120 Output: Urine/Stool Mix 1 Other: # Voids 1 # Bowel Movements 1 Active Medications: Current Medications Acetaminophen (Tylenol) 650 mg PO Q4H PRN PRN Reason: Pain (Mild 1-3) Stop: 01/10/20 23:24 Acetaminophen (Tylenol) 650 mg PO Q4HR PRN PRN Reason: Temperature above 101 Stop: 01/11/20 09:48 Acetaminophen/Hydrocodone Bitart ([place] 5mg/325mg) 1 tab PO Q6H PRN PRN Reason: Pain (Moderate 4-6) Stop: 01/11/20 09:49 Last Admin: 11/15/19 17:02 Dose: 1 tab Al Hydrox/Mg Hydrox/Simethicone (Maalox) 30 ml PO Q4HR PRN PRN Reason: GI DISTRESS Stop: 01/11/20 09:48 Ascorbic Acid (Vitamin C) 500 mg PO DAILY [facility] Stop: 01/12/20 08:59 Last Admin: 11/19/19 09:27 Dose: 500 mg Bisacodyl (Dulcolax 10 Mg Supp) 10 mg RC DAILY PRN PRN Reason: Constipation Stop: 01/11/20 09:48 Ciprofloxacin (Cipro) 500 mg PO BID [facility] Stop: 01/11/20 16:59 Last Admin: 11/19/19 09:25 Dose: 500 mg Escitalopram Oxalate (Lexapro) 10 mg PO DAILY [facility]; Protocol Stop: 01/15/20 08:59 Last Admin: 11/19/19 09:26 Dose: 10 mg Lactobacillus Rhamnosus (Culturelle 15b) 1 each PO DAILY [facility] Stop: 01/12/20 08:59 Last Admin: 11/19/19 09:26 Dose: 1 each Lorazepam (Ativan) 0.5 mg PO Q4HR PRN; Protocol PRN Reason: Anxiety Stop: 12/11/19 23:24 Losartan Potassium (Cozaar) 50 mg PO BID [facility] Stop: 01/11/20 16:59 Last Admin: 11/19/19 09:26 Dose: 50 mg Magnesium Hydroxide (Milk Of Magnesia) 30 ml PO DAILY PRN PRN Reason: Bowel Maintenance Stop: 01/11/20 09:49 Metoprolol Tartrate (Lopressor) 25 mg PO BID [facility] Stop: 01/11/20 16:59 Last Admin: 11/19/19 09:27 Dose: 25 mg Mupirocin (Bactroban Oint) 1 appl TP BID [facility] Stop: 01/12/20 16:59 Last Admin: 11/19/19 10:11 Dose: 1 appl Pantoprazole Sodium (Protonix) 40 mg PO DAILY [facility] Stop: 01/17/20 08:59 Last Admin: 11/19/19 09:25 Dose: 40 mg Zinc Sulfate (Zinc Sulfate) 220 mg PO DAILY [facility] Stop: 01/12/20 08:59 Last Admin: 11/19/19 09:26 Dose: 220 mg Zolpidem Tartrate (Ambien) 5 mg PO HS PRN PRN Reason: Insomnia Stop: 01/11/20 09:49 Last Admin: 11/14/19 21:04 Dose: 5 mg General: demented HEENT: NC/AT, PERRLA Neck: Supple, No JVD Lungs: CTAB Cardiovascular: RRR, Normal S1, Normal S2, with murmur Abdomen: soft, non-tender, globular, positive bowel sound Extremities: excoriation Neurological: no change Internal Medicine Assmt/Plan - Assessment Assessment: ASSESSMENT AND PLAN: Urinary tract infection, hypertension, history of stroke with paraplegia, decubitus ulcer, paroxysmal atrial fibrillation, dementia, BPH, hypercholesterolemia, history of prostate cancer, DJD, __h/o__ neurogenic bladder, renal insufficiency, anemia. - Plan Plan: PLAN: We will continue the patient on p.o. antibiotic. Continue with adequate nutritional support. We will reconcile the patient's medication. Continue beta marina and proton pump inhibitor. We will continue to follow the patient closely. Continue fall precaution. refer to ot Nutritional Asmnt/Malnutr-PDOC - Dietary Evaluation Malnutrition Findings (Please click <Entered> for more info): Nutritional Asmnt/Malnutrition Start: 11/14/19 15: 45 Text: Status: Complete Freq: Protocol: Document 11/14/19 15:45 CURTIS (Rec: 11/14/19 15:50 [email or web address]) Nutritional Asmnt/Malnutrition Patient General Information Nutritional Screening Moderate Risk Diagnosis Psychosis Pertinent Medical Hx/Surgical Hx BPH, Hypercholesterolemia, Hx Prostatic Cancer, Paroxysmal AFib, Stroke, Paraplegia, Lt eye blindness Subjective Information Pt is an 84-year-old male admitted on 11/11 d/t acute depression, voluntary basis. Pt is eating an estimated 54% of meals since admit date (x2 days) Per Meal/Nutrition Activity Record. Dietary is currently providing an estimated 2270 kcals and 100 gm Pro, per Pt intake this is providing an estimated 1200 kcals and 54g Pro to meet 80% kcal and 90% Pro needs. Visited pt in room today, he had not eaten lunch. Pt stated he was still full from breakfast, and breakfast was great. Talked to patient about making sure he ate the fruits and vegetables being delivered on his plate to get all of his vitamins and minerals and to drink plenty of liquids. Pt stated he is drinking lots of water here and not thirsty at the moment. Pt Ralph Score 10, pt has Hx Decubitus ulcer. Spoke with pt nurse Yessy, pt sits in one position consistently and does not like to move, and with Hx PU (now healed) skin has high potential to tear or create new ulcers. Anthropometrics HT: 59 WT: 200 LB (90.91 kg) ABW: 170 LB (77.27 kg) BMI: 29.53 (Overweight) GI/ Skin Integrity GI: WNL, Soft, Flat, Non- tender BM: 2/ x2 I/O: 240/Not Noted Skin: Redness, Dryness Ralph: 10 Diet Order: Mechanical Soft, Cardiac, RAJI Estimated Energy Needs: (ABW) 9012-6855 kcals (20-25 kcals/ kg) 60-80g Pro (0.8-1.0 g/kg) 1452-3481 ml (25-30 ml/kg) Current Diet Order/ Nutrition Support Mechanical Soft, Cardiac, RAJI Pertinent Medications Maalox (PRN), Vitamin C, Dulcolax (PRN), Culturelle 15b , Cozaar, MOM (PRN), Zinc Sulfate, Theragran Pertinent Labs 11/11: Alb 2.9, BUN/Cr 35/1.52, K 5.2, Glucose 141, Hgb/Hct 10 .9/34.7, LDL 108 Nutritional Hx/Data Height 1.75 m Height (Calculated Centimeters) 175.3 Current Weight (lbs) 90.718 kg Weight (Calculated Kilograms) 90.7 Weight (Calculated Grams) 63123.5 [place] Body Weight 144 LB (65.45 kg) % [place] Body Weight 139 Body Mass Index (BMI) 29.5 Weight Status Overweight GI Symptoms Skin Integrity/Comment: Skin: Redness, Dryness Ralph: 10 Pt Ralph Score 10, pt has Hx Decubitus ulcer. Spoke with pt nurse Yessy, pt sits in one position consistently and does not like to move, and with Hx PU (now healed) skin has high potential to tear or create new ulcers. Pt is paraplegic, not ambulatory. Estimated Nutritional Goals BEE in Kcals: Adj wt of IBW Calories/Kcals/Kg 20-25 Kcals Calculated 1740-5934 Protein: Adj wt of IBW Protein g/k.8-1.0 Protein Calculated 60-80 Fluid: ml 2340-0473 ml (25-30 ml/kg) Nutritional Problem 1. Problem Problem Altered nutrition related labs Etiology r/t pathophysiological causes Signs/Symptoms: aeb labs (11/11) Alb 2.9, BUN/Cr 35/1.52, K 5.2, Glucose 141, Hgb/Hct 10.9/34.7, LDL 108. Malnutrition Related to Morbid Obesity Malnutrition related to morbid obesity No Intervention/Recommendation Comments Continue Mechanical Soft, Cardiac, RAJI diet as tolerated . Expected Outcomes/Goals Expected Outcomes/Goals 1.PO intake to continue to meet >75% of estimated nutritional needs. 2. Monitor PO intake, wt, nutrition related labs to trend WNL, and skin integrity to trend WNL. 3.F/U as moderate risk in 3-5 days, 11/17-11/19
[2019-11-19] MEDS: Hydrocodone/APAP 5mg/325mg Tab PO PRN (18:04)
--- NOTE | 2019-11-19 18:49 | Progress Notes ---
DATE: 11/19/2019 SUBJECTIVE: The patient was resting in bed, alert, calm and pleasant. The patient smiled when talked to. The patient reported that he is feeling better. When I asked if he has been up out of bed, the patient stated no. The patient indicated that he does not want to be up. When encouraged the patient informing him that being physically active would be better for him to help with his mood as well as to improve his circulation and muscle tone. The patient agreed that he would be up later. When asked to rate his mood on a 0-10 scale with 0 being normal happy and 10 being very depressed and suicidal, the patient stated 4-5. When I asked as to what else that we can do to help improve his mood, the patient was not able to say anything. The patient stated that he wanted to go back to where he came from. OBJECTIVE: The patient appeared to be doing better. The patient is more pleasant and cheerful, smiling more easily. The staff reported that the patient continued to decline to get out of bed to participate in the activity. The staff reported that the patient continued to be compliant with medications and treatment. ASSESSMENT: 1. Major depressive disorder. 2. Mood disorder, depressed due to medical condition. 3. Vascular dementia with depressed mood. PLAN: We will continue the patient on current medications. The patient appeared to show some improvement. The patient continued to express desire to go back to the facility where he came from. We will monitor and adjust medication as indicated. JOB# [id number]
[2019-11-20] MEDS: Multivitamin w/ Minerals Tab PO SCH (08:47)
[2019-11-20] MEDS: Pantoprazole 40 mg/Packet PO SCH (08:47)
[2019-11-20] MEDS: Lactobacillus Rhamnosus GG 15 Billion CFU CAP.SPRINK PO SCH (08:47)
--- NOTE | 2019-11-20 13:49 | Internal Medicine Prog Note ---
Internal Medicine Subjective - Subjective Patient seen and examined:: with staff, chart reviewed Patient is:: verbal, interactive, confused Per staff patient has:: no adverse event, no episodes of fall, confused, tolerating meds Internal Medicine Objective - Results Recent Labs: Laboratory Last Values POC Glucose 87 MG/DL (70 - 105) 11/15/19 00:15 - Physical Exam Vitals and I&O: Vital Signs Temp 96.9 F 11/20/19 06:24 Pulse 84 11/20/19 06:24 Resp 19 11/20/19 06:24 BP 138/86 11/20/19 06:24 Pulse Ox 97 11/20/19 06:24 Intake & Output 11/19/19 11/20/19 11/20/19 18:59 06:59 18:59 Intake Total 301 Balance 301 Intake: Oral 301 Other: # Voids 0 # Bowel Movements 0 Active Medications: Current Medications Acetaminophen (Tylenol) 650 mg PO Q4H PRN PRN Reason: Pain (Mild 1-3) Stop: 01/10/20 23:24 Acetaminophen (Tylenol) 650 mg PO Q4HR PRN PRN Reason: Temperature above 101 Stop: 01/11/20 09:48 Acetaminophen/Hydrocodone Bitart ([place] 5mg/325mg) 1 tab PO Q6H PRN PRN Reason: Pain (Moderate 4-6) Stop: 01/11/20 09:49 Last Admin: 11/19/19 18:04 Dose: 1 tab Al Hydrox/Mg Hydrox/Simethicone (Maalox) 30 ml PO Q4HR PRN PRN Reason: GI DISTRESS Stop: 01/11/20 09:48 Ascorbic Acid (Vitamin C) 500 mg PO DAILY [facility] Stop: 01/12/20 08:59 Last Admin: 11/20/19 08:48 Dose: 500 mg Bisacodyl (Dulcolax 10 Mg Supp) 10 mg RC DAILY PRN PRN Reason: Constipation Stop: 01/11/20 09:48 Escitalopram Oxalate (Lexapro) 10 mg PO DAILY [facility]; Protocol Stop: 01/15/20 08:59 Last Admin: 11/20/19 08:47 Dose: 10 mg Lactobacillus Rhamnosus (Culturelle 15b) 1 each PO DAILY [facility] Stop: 01/12/20 08:59 Last Admin: 02/16/20 08:47 Dose: 1 each Lorazepam (Ativan) 0.5 mg PO Q4HR PRN; Protocol PRN Reason: Anxiety Stop: 12/11/19 23:24 Losartan Potassium (Cozaar) 50 mg PO BID [facility] Stop: 01/11/20 16:59 Last Admin: 11/20/19 09:04 Dose: Not Given Magnesium Hydroxide (Milk Of Magnesia) 30 ml PO DAILY PRN PRN Reason: Bowel Maintenance Stop: 01/11/20 09:49 Metoprolol Tartrate (Lopressor) 25 mg PO BID [facility] Stop: 01/11/20 16:59 Last Admin: 11/20/19 09:04 Dose: Not Given Mupirocin (Bactroban Oint) 1 appl TP BID [facility] Stop: 01/12/20 16:59 Last Admin: 11/20/19 08:47 Dose: 1 appl Pantoprazole Sodium (Protonix) 40 mg PO DAILY [facility] Stop: 01/17/20 08:59 Last Admin: 11/20/19 08:47 Dose: 40 mg Zinc Sulfate (Zinc Sulfate) 220 mg PO DAILY [facility] Stop: 01/12/20 08:59 Last Admin: 11/20/19 08:48 Dose: 220 mg Zolpidem Tartrate (Ambien) 5 mg PO HS PRN PRN Reason: Insomnia Stop: 01/11/20 09:49 Last Admin: 11/14/19 21:04 Dose: 5 mg General: demented HEENT: NC/AT, PERRLA Neck: Supple, No JVD Lungs: CTAB Cardiovascular: RRR, Normal S1, Normal S2, with murmur Abdomen: soft, non-tender, globular, positive bowel sound Extremities: excoriation Neurological: no change Internal Medicine Assmt/Plan - Assessment Assessment: ASSESSMENT AND PLAN: Urinary tract infection, hypertension, history of stroke with paraplegia, decubitus ulcer, paroxysmal atrial fibrillation, dementia, BPH, hypercholesterolemia, history of prostate cancer, DJD, __h/o__ neurogenic bladder, renal insufficiency, anemia. - Plan Plan: PLAN: We will continue the patient on p.o. antibiotic. Continue with adequate nutritional support. We will reconcile the patient's medication. Continue beta marina and proton pump inhibitor. We will continue to follow the patient closely. Continue fall precaution. refer to ot Nutritional Asmnt/Malnutr-PDOC - Dietary Evaluation Malnutrition Findings (Please click <Entered> for more info): Nutritional Asmnt/Malnutrition Start: 11/14/19 15: 45 Text: Status: Complete Freq: Protocol: Document 11/14/19 15:45 CURTIS (Rec: 11/14/19 15:50 [email or web address]) Nutritional Asmnt/Malnutrition Patient General Information Nutritional Screening Moderate Risk Diagnosis Psychosis Pertinent Medical Hx/Surgical Hx BPH, Hypercholesterolemia, Hx Prostatic Cancer, Paroxysmal AFib, Stroke, Paraplegia, Lt eye blindness Subjective Information Pt is an 84-year-old male admitted on 11/11 d/t acute depression, voluntary basis. Pt is eating an estimated 54% of meals since admit date (x2 days) Per Meal/Nutrition Activity Record. Dietary is currently providing an estimated 2270 kcals and 100 gm Pro, per Pt intake this is providing an estimated 1200 kcals and 54g Pro to meet 80% kcal and 90% Pro needs. Visited pt in room today, he had not eaten lunch. Pt stated he was still full from breakfast, and breakfast was great. Talked to patient about making sure he ate the fruits and vegetables being delivered on his plate to get all of his vitamins and minerals and to drink plenty of liquids. Pt stated he is drinking lots of water here and not thirsty at the moment. Pt Ralph Score 10, pt has Hx Decubitus ulcer. Spoke with pt nurse Yessy, pt sits in one position consistently and does not like to move, and with Hx PU (now healed) skin has high potential to tear or create new ulcers. Anthropometrics HT: 59 WT: 200 LB (90.91 kg) ABW: 170 LB (77.27 kg) BMI: 29.53 (Overweight) GI/ Skin Integrity GI: WNL, Soft, Flat, Non- tender BM: 11/13 x2 I/O: 240/Not Noted Skin: Redness, Dryness Ralph: 10 Diet Order: Mechanical Soft, Cardiac, RAJI Estimated Energy Needs: (ABW) 3696-1441 kcals (20-25 kcals/ kg) 60-80g Pro (0.8-1.0 g/kg) 2820-5577 ml (25-30 ml/kg) Current Diet Order/ Nutrition Support Mechanical Soft, Cardiac, RAJI Pertinent Medications Maalox (PRN), Vitamin C, Dulcolax (PRN), Culturelle 15b , Cozaar, MOM (PRN), Zinc Sulfate, Theragran Pertinent Labs 11/11: Alb 2.9, BUN/Cr 35/1.52, K 5.2, Glucose 141, Hgb/Hct 10 .9/34.7, LDL 108 Nutritional Hx/Data Height 1.75 m Height (Calculated Centimeters) 175.3 Current Weight (lbs) 90.718 kg Weight (Calculated Kilograms) 90.7 Weight (Calculated Grams) 04046.5 [place] Body Weight 144 LB (65.45 kg) % [place] Body Weight 139 Body Mass Index (BMI) 29.5 Weight Status Overweight GI Symptoms Skin Integrity/Comment: Skin: Redness, Dryness Ralph: 10 Pt Ralph Score 10, pt has Hx Decubitus ulcer. Spoke with pt nurse Yessy, pt sits in one position consistently and does not like to move, and with Hx PU (now healed) skin has high potential to tear or create new ulcers. Pt is paraplegic, not ambulatory. Estimated Nutritional Goals BEE in Kcals: Adj wt of IBW Calories/Kcals/Kg 20-25 Kcals Calculated 8173-9041 Protein: Adj wt of IBW Protein g/k.8-1.0 Protein Calculated 60-80 Fluid: ml 1247-0020 ml (25-30 ml/kg) Nutritional Problem 1. Problem Problem Altered nutrition related labs Etiology r/t pathophysiological causes Signs/Symptoms: aeb labs (11/11) Alb 2.9, BUN/Cr 35/1.52, K 5.2, Glucose 141, Hgb/Hct 10.9/34.7, LDL 108. Malnutrition Related to Morbid Obesity Malnutrition related to morbid obesity No Intervention/Recommendation Comments Continue Mechanical Soft, Cardiac, RAJI diet as tolerated . Expected Outcomes/Goals Expected Outcomes/Goals 1.PO intake to continue to meet >75% of estimated nutritional needs. 2. Monitor PO intake, wt, nutrition related labs to trend WNL, and skin integrity to trend WNL. 3.F/U as moderate risk in 3-5 days, 11/17-11/19
--- NOTE | 2019-11-20 23:57 | Progress Notes ---
DATE: 11/20/2019 SUBJECTIVE: The patient was resting in bed, alert, calm and pleasant. The patient appeared to be in better mood this morning. The patient smiled easily. The patient did not complain of any pain. When asked to rate his mood from 0-10, 0 being normal, happy and 10 being very depressed, the patient stated 0. The patient reported that he has not been up or attend any activity. When asked if he will be willing to get up in the wheelchair and attend activity, the patient nodded. The patient reported that there is no shower since he has been here. OBJECTIVE: The patient appeared to be less depressed and more pleasant this morning. The patient smiled easily when approached. Staff reported that the patient has been doing okay. The patient continued to decline to attend any activity. The patient has been compliant with care and treatment and no behavioral problem. The patient is done with his antibiotics for his urinary tract infection. The staff reported that the patient did not require any p.r.n. Ativan or Ambien. ASSESSMENT: 1. Major depressive disorder. 2. Mood disorder, depressed due to medical condition. 3. Vascular dementia with depressed mood. PLAN: We will continue the patient on current medications. The patient showed improvement. JOB# [id number] KYLEE
[2019-11-21] MEDS: Pantoprazole 40 mg/Packet PO SCH (09:06)
[2019-11-21] MEDS: Lactobacillus Rhamnosus GG 15 Billion CFU CAP.SPRINK PO SCH (09:06)
[2019-11-21] MEDS: Multivitamin w/ Minerals Tab PO SCH (09:06)
--- NOTE | 2019-11-21 13:50 | Internal Medicine Prog Note ---
Internal Medicine Subjective - Subjective Patient seen and examined:: with staff, chart reviewed Patient is:: verbal, interactive, confused Per staff patient has:: no adverse event, no episodes of fall, confused, tolerating meds Internal Medicine Objective - Results Recent Labs: Laboratory Last Values POC Glucose 87 MG/DL (70 - 105) 11/15/19 00:15 - Physical Exam Vitals and I&O: Vital Signs Temp 97.7 F 11/21/19 13:44 Pulse 84 11/21/19 13:44 Resp 16 11/21/19 13:44 BP 117/70 11/21/19 13:44 Pulse Ox 100 11/21/19 13:44 Intake & Output 11/20/19 11/21/19 11/21/19 18:59 06:59 18:59 Intake Total 240 Balance 240 Intake: Oral 240 Other: # Voids 2 Active Medications: Current Medications Acetaminophen (Tylenol) 650 mg PO Q4H PRN PRN Reason: Pain (Mild 1-3) Stop: 01/10/20 23:24 Acetaminophen (Tylenol) 650 mg PO Q4HR PRN PRN Reason: Temperature above 101 Stop: 01/11/20 09:48 Acetaminophen/Hydrocodone Bitart ([place] 5mg/325mg) 1 tab PO Q6H PRN PRN Reason: Pain (Moderate 4-6) Stop: 01/11/20 09:49 Last Admin: 11/19/19 18:04 Dose: 1 tab Al Hydrox/Mg Hydrox/Simethicone (Maalox) 30 ml PO Q4HR PRN PRN Reason: GI DISTRESS Stop: 01/11/20 09:48 Ascorbic Acid (Vitamin C) 500 mg PO DAILY [facility]AI Stop: 01/12/20 08:59 Last Admin: 11/21/19 09:06 Dose: 500 mg Bisacodyl (Dulcolax 10 Mg Supp) 10 mg RC DAILY PRN PRN Reason: Constipation Stop: 01/11/20 09:48 Escitalopram Oxalate (Lexapro) 10 mg PO DAILY JAI; Protocol Stop: 01/15/20 08:59 Last Admin: 11/21/19 09:06 Dose: 10 mg Lactobacillus Rhamnosus (Culturelle 15b) 1 each PO DAILY JAI Stop: 01/12/20 08:59 Last Admin: 11/21/19 09:06 Dose: 1 each Lorazepam (Ativan) 0.5 mg PO Q4HR PRN; Protocol PRN Reason: Anxiety Stop: 12/11/19 23:24 Losartan Potassium (Cozaar) 50 mg PO BID [facility] Stop: 01/11/20 16:59 Last Admin: 11/21/19 09:07 Dose: 50 mg Magnesium Hydroxide (Milk Of Magnesia) 30 ml PO DAILY PRN PRN Reason: Bowel Maintenance Stop: 01/11/20 09:49 Metoprolol Tartrate (Lopressor) 25 mg PO BID [facility] Stop: 01/11/20 16:59 Last Admin: 11/21/19 09:06 Dose: 25 mg Mupirocin (Bactroban Oint) 1 appl TP BID [facility] Stop: 01/12/20 16:59 Last Admin: 11/21/19 09:07 Dose: 1 appl Pantoprazole Sodium (Protonix) 40 mg PO DAILY [facility] Stop: 01/17/20 08:59 Last Admin: 11/21/19 09:06 Dose: 40 mg Zinc Sulfate (Zinc Sulfate) 220 mg PO DAILY [facility] Stop: 01/12/20 08:59 Last Admin: 11/21/19 09:06 Dose: 220 mg Zolpidem Tartrate (Ambien) 5 mg PO HS PRN PRN Reason: Insomnia Stop: 01/11/20 09:49 Last Admin: 11/14/19 21:04 Dose: 5 mg General: demented HEENT: NC/AT, PERRLA Neck: Supple, No JVD Lungs: CTAB Cardiovascular: RRR, Normal S1, Normal S2, with murmur Abdomen: soft, non-tender, globular, positive bowel sound Extremities: excoriation Neurological: no change Internal Medicine Assmt/Plan - Assessment Assessment: ASSESSMENT AND PLAN: Urinary tract infection, hypertension, history of stroke with paraplegia, decubitus ulcer, paroxysmal atrial fibrillation, dementia, BPH, hypercholesterolemia, history of prostate cancer, DJD, __h/o__ neurogenic bladder, renal insufficiency, anemia. - Plan Plan: PLAN: We will continue the patient on p.o. antibiotic. Continue with adequate nutritional support. We will reconcile the patient's medication. Continue beta marina and proton pump inhibitor. We will continue to follow the patient closely. Continue fall precaution. refer to ot Nutritional Asmnt/Malnutr-PDOC - Dietary Evaluation Malnutrition Findings (Please click <Entered> for more info): Nutritional Asmnt/Malnutrition Start: 11/14/19 15: 45 Text: Status: Complete Freq: Protocol: Document 11/14/19 15:45 CURTIS (Rec: 11/14/19 15:50 CURTIS [id number]) Nutritional Asmnt/Malnutrition Patient General Information Nutritional Screening Moderate Risk Diagnosis Psychosis Pertinent Medical Hx/Surgical Hx BPH, Hypercholesterolemia, Hx Prostatic Cancer, Paroxysmal AFib, Stroke, Paraplegia, Lt eye blindness Subjective Information Pt is an 84-year-old male admitted on 11/11 d/t acute depression, voluntary basis. Pt is eating an estimated 54% of meals since admit date (x2 days) Per Meal/Nutrition Activity Record. Dietary is currently providing an estimated 2270 kcals and 100 gm Pro, per Pt intake this is providing an estimated 1200 kcals and 54g Pro to meet 80% kcal and 90% Pro needs. Visited pt in room today, he had not eaten lunch. Pt stated he was still full from breakfast, and breakfast was great. Talked to patient about making sure he ate the fruits and vegetables being delivered on his plate to get all of his vitamins and minerals and to drink plenty of liquids. Pt stated he is drinking lots of water here and not thirsty at the moment. Pt Ralph Score 10, pt has Hx Decubitus ulcer. Spoke with pt nurse Yessy, pt sits in one position consistently and does not like to move, and with Hx PU (now healed) skin has high potential to tear or create new ulcers. Anthropometrics HT: 59 WT: 200 LB (90.91 kg) ABW: 170 LB (77.27 kg) BMI: 29.53 (Overweight) GI/ Skin Integrity GI: WNL, Soft, Flat, Non- tender BM: 11/13 x2 I/O: 240/Not Noted Skin: Redness, Dryness Ralph: 10 Diet Order: Mechanical Soft, Cardiac, RAJI Estimated Energy Needs: (ABW) 1643-3952 kcals (20-25 kcals/ kg) 60-80g Pro (0.8-1.0 g/kg) 2743-4212 ml (25-30 ml/kg) Current Diet Order/ Nutrition Support Mechanical Soft, Cardiac, RAJI Pertinent Medications Maalox (PRN), Vitamin C, Dulcolax (PRN), Culturelle 15b , Coedilberto, MOM (PRN), Zinc Sulfate, Theragran Pertinent Labs 11/11: Alb 2.9, BUN/Cr 35/1.52, K 5.2, Glucose 141, Hgb/Hct 10 .9/34.7, LDL 108 Nutritional Hx/Data Height 1.75 m Height (Calculated Centimeters) 175.3 Current Weight (lbs) 90.718 kg Weight (Calculated Kilograms) 90.7 Weight (Calculated Grams) 24183.5 [place] Body Weight 144 LB (65.45 kg) % [place] Body Weight 139 Body Mass Index (BMI) 29.5 Weight Status Overweight GI Symptoms Skin Integrity/Comment: Skin: Redness, Dryness Ralph: 10 Pt Ralph Score 10, pt has Hx Decubitus ulcer. Spoke with pt nurse Yessy, pt sits in one position consistently and does not like to move, and with Hx PU (now healed) skin has high potential to tear or create new ulcers. Pt is paraplegic, not ambulatory. Estimated Nutritional Goals BEE in Kcals: Adj wt of IBW Calories/Kcals/Kg 20-25 Kcals Calculated 6578-3362 Protein: Adj wt of IBW Protein g/k.8-1.0 Protein Calculated 60-80 Fluid: ml 9744-8991 ml (25-30 ml/kg) Nutritional Problem 1. Problem Problem Altered nutrition related labs Etiology r/t pathophysiological causes Signs/Symptoms: aeb labs (11/11) Alb 2.9, BUN/Cr 35/1.52, K 5.2, Glucose 141, Hgb/Hct 10.9/34.7, LDL 108. Malnutrition Related to Morbid Obesity Malnutrition related to morbid obesity No Intervention/Recommendation Comments Continue Mechanical Soft, Cardiac, RAJI diet as tolerated . Expected Outcomes/Goals Expected Outcomes/Goals 1.PO intake to continue to meet >75% of estimated nutritional needs. 2. Monitor PO intake, wt, nutrition related labs to trend WNL, and skin integrity to trend WNL. 3.F/U as moderate risk in 3-5 days, 11/17-11/19
[2019-11-21] MEDS: Hydrocodone/APAP 5mg/325mg Tab PO PRN (15:01)
--- NOTE | 2019-11-21 20:09 | Progress Notes ---
DATE: 11/21/2019 PSYCHIATRIC PROGRESS NOTE SUBJECTIVE: Staff was spoken to. The patient is interviewed. Mood is noted to be anxious. The patient's insight and judgment are noted to be improving. Impulse control is noted to be fair. No side effects to the medications are noted. The patient has been able to tolerate the medications. The patient's sleep and appetite are noted to be improving at this time. The patient is not presenting with any threats to harm self or others. ASSESSMENT: The patient is stabilizing. PLAN: To discharge the patient today for followup on outpatient basis. JOB# [id number]
--- NOTE | 2019-11-21 21:39 | Progress Notes ---
DATE: 11/21/2019 PSYCHOLOGY PROGRESS NOTE SUBJECTIVE: The patient is seen lying in bed. The patient reports that he may have urinated in bed and is unable to get out of bed because he is unable to walk. A OPHTHALMOLOGY SURGICAL TECHNICIAN was called to assist the patient. The patient had no complaints of any pain. The patient was friendly and cooperative. The patient states that he is not depressed. The patient is asking when he will be discharged. This is deferred to the attending psychiatrist. OBJECTIVE: Mood is stable and euthymic. Affect is mood congruent and reactive. Thought process shows to be goal oriented. The patient denies any hallucinations or delusions. The patient has stayed by himself in his room during his hospital course and states that he has difficulty walking. The patient has been compliant with all aspects of his care and treatment. ASSESSMENT: The patient presents as stable with no overt signs or symptoms of depression. PLAN: The patient is requesting to speak with the attending psychiatrist to arrange discharge and return to his long term facility. The patient has been showing improvement consistently and is compliant with all aspects of his care and treatment. We provided positive reinforcement for compliance with care and also provided coping strategies for phase of life issues to assist the patient in preventing depressive episodes. We will follow up only if the patient remains admitted on the unit while the patient is awaiting placement. JOB# [id number] KYLEE
== END 2019-11-21 18:50 | DRG 885 ==
LOC: GERO 21:48
PROVIDERS: ADMIT Psychiatry & Neurology Psychiatry; ATTEND Psychiatry & Neurology Psychiatry
DX: F33.1 Major depressive disorder, recurrent, moderate (principal); F01.50 Vascular dementia, unspecified severity, without behavioral disturbance, psychotic disturbance, mood disturbance, and anxiety; G82.20 Paraplegia, unspecified; L89.90 Pressure ulcer of unspecified site, unspecified stage; I48.0 Paroxysmal atrial fibrillation; Z79.01 Long term (current) use of anticoagulants; N40.0 Benign prostatic hyperplasia without lower urinary tract symptoms; F03.90 Unspecified dementia, unspecified severity, without behavioral disturbance, psychotic disturbance, mood disturbance, and anxiety; N31.9 Neuromuscular dysfunction of bladder, unspecified; D64.9 Anemia, unspecified; Z85.46 Personal history of malignant neoplasm of prostate; H54.62 Unqualified visual loss, left eye, normal vision right eye; I69.369 Other paralytic syndrome following cerebral infarction affecting unspecified side
CPT/HCPCS: 82948-90; 83036-90; Z7610